=== PATIENT | male | born 1965 | race Caucasian/White ===

== ENCOUNTER 2016-07-10 09:55 | Inpatient (IN) | payer OTHER ==
[~2016-07-10] VITALS: Ht 177.8 cm; Wt 72.5 kg
[2016-07-10] VITALS (7 sets, daily range): BP systolic 97–136; BP diastolic 60–83; PULSE 76–98; RESP 16–18; TEMP 97–98.2; O2SAT 96–100
[~2016-07-10 09:55] MED LIST: DEPA500T3 PO; DILA2TAB2 PO; LURA40 PO; REME15TA PO; SERT-132 PO
[2016-07-10] MEDS ORDERED: SODIUM CHLOR 0.9% 1000 ML INJ 1,000 ML IV SCH (10:08)
[2016-07-10] MEDS ORDERED: HYDROmorphone HCL PF 1 MG/ML VIAL IVS ONE (10:15)
[2016-07-10] MEDS ORDERED: ONDANSETRON HCL 4 MG/2 ML VIAL IVP ONE (10:15)
[2016-07-10 10:40] LABS: AUTOMATED NEUTROPHIL # 4.2 TH/MM3 (1.8-7.7); BASOPHIL % 0.4 % (0.0-2.0); EOSINOPHIL # 0.1 TH/MM3 (0-0.4); EOSINOPHIL % 0.9 % (0.0-4.0); HEMATOCRIT 39.8 % (39.0-51.0); HEMO FLAGS DIFF FINAL; LYMPH % 19.9 % (9.0-44.0); LYMPHOCYTE # 1.2 TH/MM3 (1.0-4.8); MEAN CELL VOLUME 89.5 FL (80.0-100.0); MEAN CORPUSCULAR HEMOGLOBIN 30.2 PG (27.0-34.0); MEAN CORPUSCULAR HGB CONC 33.7 % (32.0-36.0); MONO % 8.2 % (0.0-8.0); NEUT % 70.6 % (16.0-70.0); PLATELET COUNT 169 TH/MM3 (150-450); RED BLOOD COUNT 4.44 MIL/MM3 (4.50-5.90); RED CELL DISTRIBUTION WIDTH 16.8 % (11.6-17.2)
--- NOTE | 2016-07-10 10:45 | PD ---
HPI Chief Complaint: Abdominal Pain Time Seen by Provider: 10:03 Travel History International Travel<30 days: No Contact w/Intl Traveler<30days: No Traveled to known affect area: No History of Present Illness HPI Patient is a 50-year-old male with a history of cholecystectomy as well as biliary stent placement recently released from the hospital. He presents today with abdominal pain states is not responsive to his Dilaudid pills at home which she has run out of. Patient also states that he was diagnosed with a mass when they placed in his biliary stent. Patient states he has not been able to keep any food down but declines bloody or bilious vomiting. No history of fevers no diarrhea. According to records patient had a cholecystectomy on June 06 2016, and was readmitted on July 01 for jaundice as well as right upper quadrant pain and had a pancreatic stent placed and possible pancreatic mass. He has not followed up as an outpatient and has not seen oncologist. PFSH Past Medical History Bipolar Disorder: Yes Anxiety: No Depression: No Cancer: No Cardiovascular Problems: No Diminished Hearing: No Endocrine: No Gastrointestinal Disorders: Yes (Abdominal pain X's 1 month) GERD: Yes Genitourinary: No Hepatitis: No Immune Disorder: No Musculoskeletal: No Neurologic: No Psychiatric: Yes (bipolar takes medication for this ) Reproductive: No Respiratory: No Past Surgical History Body Medical Devices: NONE Cholecystectomy: Yes (2015) Pacemaker: No Other Surgery: Yes (Nasal) Social History Alcohol Use: No Tobacco Use: Yes (1.5 PPD) Substance Use: No Allergies-Medications (Allergen,Severity, Reaction): Coded Allergies: No Known Allergies (Unverified , 07/10/16) Reported Meds & Prescriptions Reported Meds & Active Scripts Active Dilaudid (Hydromorphone HCl) 2 Mg Tab 2 Mg PO Q6HR PRN Reported Sertraline (Sertraline HCl) 50 Mg Tab 50 Mg PO DAILY Remeron (Mirtazapine) 15 Mg Tab 15 Mg PO HS Latuda (Lurasidone) 40 Mg Tab 40 Mg PO HS Depakote ER (Divalproex Sodium) 500 Mg Cally 500 Mg PO BID Review of Systems Except as stated in HPI: all other systems reviewed are Neg Physical Exam Narrative GENERAL: Well-developed well-nourished in no apparent distress SKIN: Warm and dry. HEAD: Atraumatic. Normocephalic. EYES: Pupils equal and round. No scleral icterus. No injection or drainage. ENT: No nasal bleeding or discharge. Mucous membranes pink and moist. NECK: Trachea midline. No JVD. CARDIOVASCULAR: Regular rate and rhythm. No murmur appreciated. RESPIRATORY: No accessory muscle use. Clear to auscultation. Breath sounds equal bilaterally. GASTROINTESTINAL: Abdomen soft, minimally tender in all 4 quadrants, nondistended. No rebound no percussion tenderness Hepatic and splenic margins not palpable. MUSCULOSKELETAL: No obvious deformities. No clubbing. No cyanosis. No edema. NEUROLOGICAL: Awake and alert. No obvious cranial nerve deficits. Motor grossly within normal limits. Normal speech. PSYCHIATRIC: Appropriate mood and affect; insight and judgment normal. Data Data Last Documented VS Vital Signs Date Time Temp Pulse Resp B/P Pulse Ox O2 Delivery O2 Flow Rate FiO2 07/10/16 12:34 17 07/10/16 12:20 98.0 76 128/83 99 Room Air Orders Complete Blood Count With Diff (07/10/16 10:08) Comprehensive Metabolic Panel (07/10/16 10:08) Lipase (07/10/16 10:08) Lactic Acid (07/10/16 10:08) Prothrombin Time / Inr (Pt) (07/10/16 10:08) Act Partial Throm Time (Ptt) (07/10/16 10:08) Urinalysis - C+S If Indicated (07/10/16 10:08) Ct Abd/Pel W Iv Contrast(Rout) (07/10/16 10:08) Iv Access Insert/Monitor (07/10/16 10:08) Ecg Monitoring (07/10/16 10:08) Oximetry (07/10/16 10:08) Ondansetron Inj (Zofran Inj) (07/10/16 10:15) Sodium Chlor 0.9% 1000 Ml Inj (Ns 1000 M (07/10/16 10:08) Sodium Chloride 0.9% Flush (Ns Flush) (07/10/16 10:15) Electrocardiogram (07/10/16 10:08) Hydromorphone Pf Inj (Dilaudid Pf Inj) (07/10/16 10:15) Hydromorphone Pf Inj (Dilaudid Pf Inj) (07/10/16 11:30) Iohexol 300 Inj (Omnipaque 300 Inj) (07/10/16 12:21) Admit Order (Ed Use Only) (07/10/16 ) Hydromorphone Pf Inj (Dilaudid Pf Inj) (07/10/16 13:15) Labs Laboratory Tests Test 07/10/16 10:20 White Blood Count 6.0 TH/MM3 Red Blood Count 4.44 MIL/MM3 Hemoglobin 13.4 GM/DL Hematocrit 39.8 % Mean Corpuscular Volume 89.5 FL Mean Corpuscular Hemoglobin 30.2 PG Mean Corpuscular Hemoglobin 33.7 % Concent Red Cell Distribution Width 16.8 % Platelet Count 169 TH/MM3 Mean Platelet Volume 9.2 FL Neutrophils (%) (Auto) 70.6 % Lymphocytes (%) (Auto) 19.9 % Monocytes (%) (Auto) 8.2 % Eosinophils (%) (Auto) 0.9 % Basophils (%) (Auto) 0.4 % Neutrophils # (Auto) 4.2 TH/MM3 Lymphocytes # (Auto) 1.2 TH/MM3 Monocytes # (Auto) 0.5 TH/MM3 Eosinophils # (Auto) 0.1 TH/MM3 Basophils # (Auto) 0.0 TH/MM3 CBC Comment DIFF FINAL Differential Comment Prothrombin Time 12.5 SEC Prothromb Time International 1.1 RATIO Ratio Activated Partial 27.3 SEC Thromboplast Time Sodium Level 140 MEQ/L Potassium Level 3.8 MEQ/L Chloride Level 101 MEQ/L Carbon Dioxide Level 28.9 MEQ/L Anion Gap 10 MEQ/L Blood Urea Nitrogen 10 MG/DL Creatinine 0.56 MG/DL Estimat Glomerular Filtration 155 ML/MIN Rate Random Glucose 125 MG/DL Lactic Acid Level 2.2 mmol/L Calcium Level 9.3 MG/DL Total Bilirubin 2.6 MG/DL Aspartate Amino Transf 20 U/L (AST/SGOT) Alanine Aminotransferase 81 U/L (ALT/SGPT) Alkaline Phosphatase 542 U/L Total Protein 7.0 GM/DL Albumin 2.7 GM/DL Lipase 120 U/L [facility] Medical Decision Making Medical Screen Exam Complete: Yes Emergency Medical Condition: Yes Interpretation(s) EKG shows sinus rhythm with a normal axis and normal R-wave progression. Intervals within normal limits. Biphasic T pattern in lead 3 and aVF probable normal variant. This is a borderline EKG. Differential Diagnosis Abdominal pain, malignant related pain, biliary colic, biliary stenting, pancreatic cancer, acute abdomen seems unlikely. Narrative Course Patient roomed in the emergency department, given his medical records highly suspect pancreatic cancer. CT examination was performed and shows no significant change from prior. He does have a small volume ascites as well as 2 lesions in his liver which possibly related to malignancy. He does also have a mass in the head of his pancreas. His labs show an elevation in alk phosphatase which is lower than his previous value. His bilirubin has been as high as 10 in the past but is within normal limits today. He was given Dilaudid to a total of 5 mg in the emergency department finally having some relief of his pain. I discussed with him given the amount of pain medicine he is taking a needs to consider being in the hospital for further workup as an inpatient for intractable abdominal pain and he is agreeable to this time. Diagnosis Primary Impression: Intractable abdominal pain Additional Impressions: Pancreatic mass S/P cholecystectomy S/P laparoscopic cholecystectomy Right upper quadrant abdominal pain Admitting Information Admitting Physician Requests: Observation Condition: Stable Luis Casillas MD Jul 10, 2016 10:45
[2016-07-10 10:57] LABS: APTT (PATIENT) 27.3 SEC (24.3-30.1); INTERNATIONAL NORMALIZED RATIO 1.1 RATIO; PROTHROMBIN TIME - PATIENT 12.5 SEC (9.8-11.6)
[2016-07-10 11:03] LABS: ALT (GPT) 81 U/L (12-78); ANION GAP 10 MEQ/L (5-15); AST (GOT) 20 U/L (15-37); BICARBONATE 28.9 MEQ/L (21.0-32.0); BLOOD UREA NITROGEN 10 MG/DL (7-18); CHLORIDE 101 MEQ/L (98-107); GLOMERULAR FILTRATION RATE 155 ML/MIN (>89); POTASSIUM 3.8 MEQ/L (3.5-5.1); SODIUM (NA) 140 MEQ/L (136-145)
[2016-07-10 11:05] LABS: ALKALINE PHOSPHATASE 542 U/L (45-117); TOTAL BILIRUBIN ADULT 2.6 MG/DL (0.2-1.0)
[2016-07-10] MEDS ORDERED: HYDROmorphone HCL PF 2 MG/ML VIAL IV PUSH ONE ×2 (11:30→13:15)
[2016-07-10] MEDS: SODIUM CHLORIDE 0.9% FLUSH 5 ML FLUSH IVF PRN ×2 (12:05→13:23)
[2016-07-10] MEDS ORDERED: IOHEXOL 300 MG/ML 50 ML BTL (for RAD DIAG) IV ONE (12:21)
--- NOTE | 2016-07-10 12:50 | RADRPT ---
EXAM DATE/TIME: 07/10/2016 11:49 [place] COMPARISON: MRCP W/O CONTRAST, July 01, 2016, 16:43. MRCP W/O CONTRAST, May 16, 2016, 7:40. CT ABDOMEN & PELVIS W CONTRAST, February 18, 2016, 16:45. CT ABDOMEN & PELVIS W CONTRAST, July 02, 2016, 17: 33. INDICATIONS : Mid abdomen pain diarrhea for one month mass seen around pancreas when patient was getting a stent. IV CONTRAST: 98 cc Omnipaque 300 (iohexol) IV ORAL CONTRAST: No oral contrast ingested. RADIATION DOSE: 9.96 CTDIvol (mGy) MEDICAL HISTORY : Pancreatic mass SURGICAL HISTORY : stent placement ENCOUNTER: Initial ACUITY: 1 month PAIN SCALE: 10/10 LOCATION: Abdomen TECHNIQUE: Volumetric scanning of the abdomen and pelvis was performed. Using automated exposure control and ad justment of the mA and/or kV according to patient size, radiation dose was kept as low as reasonably achievable to obtain optimal diagnostic quality images. FINDINGS: LOWER LUNGS: The visualized lower lungs are clear. LIVER: There is abnormal enhancement of the liver with decreased central enhancement likely related to sadaf l vein occlusion versus severe narrowing near the sadaf splenic confluence. Patient is postcholecyste ctomy. There is prominence of the central intrahepatic bile ducts with left pneumobilia. Stent is pre sent with proximal aspect at the confluence of the left and right intrahepatic ducts and distally ext ends to the second portion the duodenum. There are again 3 low-density liver lesions identified in th e right lobe measuring between 9 and 10 mm. SPLEEN: Spleen is normal in size but demonstrates somewhat wedge-shaped areas of decreased enhancement as wel l as a 2 more focal hypodense low-density lesions measuring up to 11 mm. PANCREAS: There is a low-density mass involving the body of the pancreas and extending posteriorly into the adj acent soft tissues completely encasing the celiac trunk and its main branches as well as the superior mesenteric artery. Abnormal soft tissue also extends in the gastrohepatic region. The mass is challe nging tach early measure given the shape but it measures approximately 5.2 x 4.4 cm not change since the study from 8 days ago. It causes narrowing of the SMA and celiac axis and causes occlusion of the splenic vein. It is not causing any pancreatic duct dilatation. Pancreatic head and uncinate process demonstrate no definite abnormality. KIDNEYS: Normal in size and shape. There is no mass, stone or hydronephrosis. ADRENAL GLANDS: Within normal limits. VASCULAR: There is no aortic aneurysm. There is mild atherosclerotic disease. The peripancreatic mass is obstru cting the splenic vein and causing severe narrowing versus obstruction of the portal vein. There is a lso severe narrowing along with encasement of the celiac trunk and superior mesenteric artery. There are collateral perigastric vessels. BOWEL/MESENTERY: Stomach demonstrates no acute finding. There is edema versus wall thickening involving the second por tion of the duodenum. Remaining small bowel demonstrates no acute finding. No definite acute colon ab normality is appreciated. There is questionable wall thickening of the ascending colon but it appears less prominent than on the prior study. It may be vascular in etiology. There is a small volume of f ree fluid within the abdomen and pelvis. ABDOMINAL WALL: Within normal limits. RETROPERITONEUM: There is no lymphadenopathy. BLADDER: No wall thickening or mass. REPRODUCTIVE: Within normal limits. INGUINAL: There is no lymphadenopathy or hernia. MUSCULOSKELETAL: No acute osseous abnormality is identified. CONCLUSION: 1. The findings on the current study a very similar to the prior study from 8 days ago with a abnorma l low-density mass involving the body of the pancreas and adjacent retroperitoneal structures measuri ng approximately 5.2 x 4.4 cm. The mass is causing attenuation/narrowing of the celiac trunk and supe rior mesenteric arteries and is crossing the occlusion of the splenic vein and severe narrowing versu s occlusion of the portal vein. 2. 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 There are also 2 low-density lesions that appear more masslike measuring up to 11 mm and may represent lesions or perfusion related abnormalities. These f indings are new since the prior study. 3. Abnormal enhancement of the liver likely related to narrowing/occlusion of the portal vein with 3 low-density lesions identified measuring up to 10 mm. These are incompletely characterized but could represent metastatic lesions. 4. There is a stable small volume of free fluid within the abdomen and pelvis. Savage Sarmiento MD on July 10, 2016 at 12:33 Board Certified Radiologist. This report was verified electronically.
--- NOTE | 2016-07-10 14:01 | HHI.HP ---
[facility] Service Family Medicine Primary Care Physician Geraldine Gerardo MD Admission Diagnosis Intractible Abdominal Pain Diagnoses: International Travel<30 Days: No Contact w/Intl Traveler<30days: No Known Affected Area: No History of Present Illness Patient is a 50-year-old man with a known pancreatic mass who presents with intractable abdominal pain. Pt is s/p cholecystectomy on 06/06/16, s/p ERCP with stent placement, with imaging concerning for pancreatic mass consistent with pancreatic adenocarcinoma with possible liver metastasis and elevated tumor markers with CA-19-9. Last admission, pt was unable to undergo percutaneous biopsy because it could not be safely done at this time secondary to inflammation. Last discharge, he was told to follow-up with oncology and get a biopsy as an outpatient, but was unable to. He was discharged on July 04 with 28 pills of Dilaudid 2 mg PO. Patient reports that he has had this abdominal pain since March. He reports that he ran out of Dilaudid pills 2 days ago, dealt with it for one day, and then presented today due to the ED for his intractable abdominal pain. His abdominal pain radiates to the middle of his back and goes all the way up his spine and he also experiences bilateral flank pain. His abdominal pain is associated with weakness, decreased appetite, diarrhea, which involving present since March. He reports that the Dilaudid does give him some relief. He reported that he presented with a pain of 10 out of 10, and after 3 shots of pain medication in the ED, his pain was still 5 out of 10. He reports losing 70 pounds since March. He endorses nausea, but denies any vomiting. He describes his diarrhea as runny, sometimes with solid pieces. He reports that he can drink liquids. Akin is PCP. He has an appointment on the . admitted for possible bx and pain management. (Demarcus Chan MD R1) Review of Systems Constitutional: COMPLAINS OF: Fatigue, Weight loss, DENIES: Fever, Chills Endocrine: DENIES: Polyuria Eyes: DENIES: Blurred vision, Diplopia, Double Vision Ears, nose, mouth, throat: DENIES: Throat pain, Ear Pain, Running Nose, Sinus Pain Respiratory: DENIES: Cough, Wheezing, Shortness of breath Cardiovascular: DENIES: Chest pain, Palpitations, Syncope Gastrointestinal: COMPLAINS OF: Abdominal pain, Diarrhea, Nausea, Anorexia, DENIES: Black stools, Bloody stools, Constipation, Vomiting Genitourinary: DENIES: Dysuria Musculoskeletal: COMPLAINS OF: Back pain Integumentary: DENIES: Rash Neurologic: DENIES: Headache (Demarcus Chan MD R1) Past Family Social History Past Medical History -Bipolar disorder diagnosed at 16 years old -Depression -Anxiety Past Surgical History s/p cholecystectomy on 06/06/16, s/p ERCP with stent placement last admission Nasal surgery I&D of left hand abscess Reported Medications Sertraline (Sertraline HCl) 50 Mg Tab 50 Mg PO DAILY Remeron (Mirtazapine) 15 Mg Tab 15 Mg PO HS Latuda (Lurasidone) 40 Mg Tab 40 Mg PO HS Depakote ER (Divalproex Sodium) 500 Mg Cally 500 Mg PO BID Tramadol ER 24 HR (Tramadol HCl) 300 Mg Caper 300 Mg PO DAILY (Demarcus Chan MD R1) Allergies: Coded Allergies: No Known Allergies (Unverified , 07/10/16) Family History DM: Mom diagnosed at 47 years of age HTN: Mom IA: Mom Cancer: sister of pancreatic cancer Social History Current smoker - 1.5 ppd for 20 years - wants to quit but has not tried Alcohol - denies Drugs - denies Lives with mom. Looking for work (Demarcus Chan MD R1) Physical Exam Vital Signs Vital Signs Date Time Temp Pulse Resp B/P Pulse Ox O2 Delivery O2 Flow Rate FiO2 07/10/16 12:34 17 07/10/16 12:20 98.0 76 18 128/83 99 Room Air 07/10/16 10:51 17 07/10/16 10:10 17 99 Room Air 07/10/16 10:10 17 07/10/16 10:09 97.8 98 17 131/83 07/10/16 09:56 98.2 95 16 120/69 100 Physical Exam GENERAL: This is a well-nourished, well-developed patient, in mild distress secondary to pain. SKIN: No rashes, ecchymoses or lesions. Cool and dry. HEAD: Atraumatic. Normocephalic. EYES: Pupils equal round and reactive. Extraocular motions intact. No scleral icterus. No injection or drainage. ENT: Nose without bleeding, purulent drainage. Throat without erythema, tonsillar hypertrophy or exudate. Uvula midline. Airway patent. NECK: Trachea midline. No JVD or lymphadenopathy. Supple, nontender, no meningeal signs. CARDIOVASCULAR: Regular rate and rhythm without murmurs, gallops, or rubs. RESPIRATORY: Clear to auscultation. Breath sounds equal bilaterally. No wheezes , rales, or rhonchi. GASTROINTESTINAL: Abdomen soft, non-tender, nondistended. No guarding. MUSCULOSKELETAL: Extremities without clubbing, cyanosis, or edema. No joint tenderness, effusion. + trace ankle edema noted. No calf tenderness. NEUROLOGICAL: Awake and alert. Cranial nerves II through XII grossly intact. Motor and sensory grossly within normal limits. Normal speech. Laboratory Laboratory Tests Test 07/10/16 10:20 White Blood Count 6.0 Red Blood Count 4.44 Hemoglobin 13.4 Hematocrit 39.8 Mean Corpuscular Volume 89.5 Mean Corpuscular Hemoglobin 30.2 Mean Corpuscular Hemoglobin 33.7 Concent Red Cell Distribution Width 16.8 Platelet Count 169 Mean Platelet Volume 9.2 Neutrophils (%) (Auto) 70.6 Lymphocytes (%) (Auto) 19.9 Monocytes (%) (Auto) 8.2 Eosinophils (%) (Auto) 0.9 Basophils (%) (Auto) 0.4 Neutrophils # (Auto) 4.2 Lymphocytes # (Auto) 1.2 Monocytes # (Auto) 0.5 Eosinophils # (Auto) 0.1 Basophils # (Auto) 0.0 CBC Comment DIFF FINAL Differential Comment Prothrombin Time 12.5 Prothromb Time International 1.1 Ratio Activated Partial 27.3 Thromboplast Time Sodium Level 140 Potassium Level 3.8 Chloride Level 101 Carbon Dioxide Level 28.9 Anion Gap 10 Blood Urea Nitrogen 10 Creatinine 0.56 Estimat Glomerular Filtration 155 Rate Random Glucose 125 Lactic Acid Level 2.2 Calcium Level 9.3 Total Bilirubin 2.6 Aspartate Amino Transf 20 (AST/SGOT) Alanine Aminotransferase 81 (ALT/SGPT) Alkaline Phosphatase 542 Total Protein 7.0 Albumin 2.7 Lipase 120 (Demarcus Chan MD R1) Result Diagram: 07/10/16 1020 07/10/16 1020 Imaging Last Impressions Abdomen/Pelvis CT 07/10/16 1008 Signed Impressions: Service Date/Time: June 11:49 - CONCLUSION: 1. The findings on the current study a very similar to the prior study from 8 days ago with a abnormal low-density mass involving the body of the pancreas and adjacent retroperitoneal structures measuring approximately 5.2 x 4.4 cm. 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 2. 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 There are also 2 low-density lesions that appear more masslike measuring up to 11 mm and may represent lesions or perfusion related abnormalities. These findings are new since the prior study. 3. Abnormal enhancement of the liver likely related to narrowing/occlusion of the portal vein with 3 low-density lesions identified measuring up to 10 mm. These are incompletely characterized but could represent metastatic lesions. 4. There is a stable small volume of free fluid within the abdomen and pelvis. Savage Sarmiento MD Course In the emergency depart, patient received Dilaudid 1 mg IVS 1, EKG, Zofran 4 mg IV push 1, CT abdomen and pelvis with IV contrast, UA, a PTT, PT/INR, lactic acid, lipase, CMP, CBC, Dilaudid 2 mg IV push 2. (Demarcus Chan MD R1) Assessment and Plan Assessment and Plan Patient is a 50-year-old man with a known pancreatic mass who presents with intractable abdominal pain. Pt is s/p cholecystectomy on 06/06/16, s/p ERCP with stent placement, with imaging concerning for pancreatic mass consistent with pancreatic adenocarcinoma with possible liver metastasis and elevated tumor markers with CA-19-9, who is being admitted for pain management and possible biopsy. Code Status Full code Discussed Condition With Patient seen and discussed with Dr. Gorge Workman and Dr. Bridgette Workman. (Demarcus Chan MD R1) Attending Attestation Patient seen and examined. Case reviewed and discussed with the resident team. Agree with plan of care as discussed with me and documented in the resident note. (Bridgette Workman MD) Problem List: (1) Intractable abdominal pain Status: Acute Plan: Patient is a 50-year-old man with a known pancreatic mass who presents with intractable abdominal pain. Pt is s/p cholecystectomy on 06/06/16, s/p ERCP with stent placement, with imaging concerning for pancreatic mass consistent with pancreatic adenocarcinoma with possible liver metastasis and elevated tumor markers with CA-19-9, who is being admitted for pain management and possible biopsy. Monitor vital signs Monitor pulse ox Administer oxygen by nasal cannula as needed Monitor intake and output monitoring analyst/telemetry APPLIANCE TECHNICIAN pump: * Bolus dose of 0.2 mg * Bolus lockout time of 10 minutes * 1 hour limit of 1.6 mg * Basal rate of 0.4 mg per hour * Narcan 0.4 mg IV stat if respiratory rate less than 10 breaths per minute Carla-Colace one tab by mouth twice a day for opiate-induced constipation Normal saline IV 100 mL per hour Tylenol 650 mg by mouth every 4 hours when necessary for fever, pain, irritability Toradol 30 mg IV push every 6 hours Zofran 4 mg IV push every 6 hours when necessary for nausea or vomiting (2) Pancreatic mass Status: Acute Plan: See assessment and plan above. Medical oncology consult. Patient already known to the service. BMP, CMP (3) Bipolar disorder Status: Chronic Plan: Patient with bipolar disorder diagnosed at 16 years of age with comorbid conditions such as anxiety and depression. Continue home medications as below: Depakote ER 500 mg by mouth twice a day Latuda 40 mg by mouth daily at bedtime Mirtazapine/Remeron 15 mg by mouth daily at bedtime Sertraline/Zoloft 50 mg by mouth daily (4) FEN/DVT PPX/GI PPX Status: Acute Plan: Fluids: Maintenance fluids with normal saline IV at 100 [place]'s per hour Electrolytes: Monitor and replete as needed Nutrition: Regular basic diet as tolerated GI prophylaxis: None currently indicated at this time DVT prophylaxis: Given likely history of cancer and no renal injury, Lovenox 40 mg subcutaneous every 24 hours (Demarcus Chan MD R1) Physician Certification 2 Midnight Certification Type: Admission for Inpatient Services Order for Inpatient Services The services are ordered in accordance with Medicare regulations or non- Medicare payer requirements, as applicable. In the case of services not specified as inpatient-only, they are appropriately provided as inpatient services in accordance with the 2-midnight benchmark. Estimated LOS (days): 2 2 days is the estimated time the patient will need to remain in the hospital, assuming treatment plan goals are met and no additional complications. Post-Hospital Plan: Not yet determined (Demarcus Chan MD R1) Demarcus Chan MD R1 Jul 10, 2016 14:01 Bridgette Workman MD Jul 10, 2016 19:50
[2016-07-10] MEDS ORDERED: ONDANSETRON HCL 4 MG/2 ML VIAL IVP PRN (14:15)
[2016-07-10] MEDS ORDERED: SODIUM CHLORIDE 0.9% FLUSH 5 ML FLUSH FLUSH PRN (14:15)
[2016-07-10] MEDS ORDERED: NALOXONE HCL 0.4 MG/ML AMP IV PRN ×2 (14:15→20:15)
[2016-07-10] MEDS ORDERED: ACETAMINOPHEN 325 MG TAB PO PRN (14:15)
--- NOTE | 2016-07-10 14:23 | HHI.FPPN ---
Subjective Remarks pt. seen, examined and discussed with the medicine team This is a 50 yo male with recent cholecystectomy who presented to ED last week with jaundice and upper abdominal pain. He was admitted, evaluated and found to have a mass in thehead of the pancreas. Stent was placed and his jaundice is resolving, but his pain is severe 10:10 with absolutely no appetite. He has gone 24 hr without dilaudid and is in distress. Thus far in ED he has had three doses of IV pain medication and his pain is now 5:10. Mom is with him and is supportive. He was referred to oncology but has not yet been seen. He needs a biopsy of the mass to confirm diagnosis. See H&P for this admission for additional historical details, including past, family and social History. Review of systems + for nausea, no vomiting, anorexia, abdominal pain across upper abdomen and pale, loose stools. Otherwise all systems negative. Objective Vitals Vital Signs Date Time Temp Pulse Resp B/P Pulse Ox O2 Delivery O2 Flow Rate FiO2 07/10/16 13:53 17 07/10/16 12:34 17 07/10/16 12:20 98.0 76 18 128/83 99 Room Air 07/10/16 10:51 17 07/10/16 10:10 17 99 Room Air 07/10/16 10:10 17 07/10/16 10:09 97.8 98 17 131/83 07/10/16 09:56 98.2 95 16 120/69 100 Result Diagram: 07/10/16 1020 07/10/16 1020 Other Results Laboratory Tests Test 07/10/16 10:20 White Blood Count 6.0 TH/MM3 Red Blood Count 4.44 MIL/MM3 Hemoglobin 13.4 GM/DL Hematocrit 39.8 % Mean Corpuscular Volume 89.5 FL Mean Corpuscular Hemoglobin 30.2 PG Mean Corpuscular Hemoglobin 33.7 % Concent Red Cell Distribution Width 16.8 % Platelet Count 169 TH/MM3 Mean Platelet Volume 9.2 FL Neutrophils (%) (Auto) 70.6 % Lymphocytes (%) (Auto) 19.9 % Monocytes (%) (Auto) 8.2 % Eosinophils (%) (Auto) 0.9 % Basophils (%) (Auto) 0.4 % Neutrophils # (Auto) 4.2 TH/MM3 Lymphocytes # (Auto) 1.2 TH/MM3 Monocytes # (Auto) 0.5 TH/MM3 Eosinophils # (Auto) 0.1 TH/MM3 Basophils # (Auto) 0.0 TH/MM3 CBC Comment DIFF FINAL Differential Comment Prothrombin Time 12.5 SEC Prothromb Time International 1.1 RATIO Ratio Activated Partial 27.3 SEC Thromboplast Time Sodium Level 140 MEQ/L Potassium Level 3.8 MEQ/L Chloride Level 101 MEQ/L Carbon Dioxide Level 28.9 MEQ/L Anion Gap 10 MEQ/L Blood Urea Nitrogen 10 MG/DL Creatinine 0.56 MG/DL Estimat Glomerular Filtration 155 ML/MIN Rate Random Glucose 125 MG/DL Lactic Acid Level 2.2 mmol/L Calcium Level 9.3 MG/DL Total Bilirubin 2.6 MG/DL Aspartate Amino Transf 20 U/L (AST/SGOT) Alanine Aminotransferase 81 U/L (ALT/SGPT) Alkaline Phosphatase 542 U/L Total Protein 7.0 GM/DL Albumin 2.7 GM/DL Lipase 120 U/L Imaging Last Impressions Abdomen/Pelvis CT 07/10/16 1008 Signed Impressions: Service Date/Time: June 11:49 - CONCLUSION: 1. The findings on the current study a very similar to the prior study from 8 days ago with a abnormal low-density mass involving the body of the pancreas and adjacent retroperitoneal structures measuring approximately 5.2 x 4.4 cm. 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 2. 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 There are also 2 low-density lesions that appear more masslike measuring up to 11 mm and may represent lesions or perfusion related abnormalities. These findings are new since the prior study. 3. Abnormal enhancement of the liver likely related to narrowing/occlusion of the portal vein with 3 low-density lesions identified measuring up to 10 mm. These are incompletely characterized but could represent metastatic lesions. 4. There is a stable small volume of free fluid within the abdomen and pelvis. Savage Sarmiento MD Objective Remarks O. CONSTITUTIONAL/GEN: normally nourished, in distress with severe abdominal pain.. EYES: conjunctiva normal, PERRLA, EOMI. No scleral icterus. ENT: Mouth and pharynx normal. MM moist. NECK: thyroid midline, carotids symmetrical. LUNGS: clear A-P, respiratory effort is normal. CARDIOVASCULAR: RR without murmur or gallop. Perhaps trace ankle edema. GI/ABD: soft without masses, without organomegaly. BS +. He has had significant pain meds. : no CVA tenderness NEURO: No focal deficits. SKIN: color pale, no rashes noted. HEME/LYMPH: no bruising, petechia or significant adenopathy MUSC: back is normal in appearance. Extremities are normal in appearance. PSYCH/MENTAL STATUS: Alert and oriented x 3. A/P Assessment and Plan Pancreatic mass suspicious for maligancy. Attending Attestation Patient seen and examined. Case reviewed and discussed with the resident team. Agree with plan of care as discussed with me and documented in the resident note. Bridgette Workman MD Jul 10, 2016 14:23
[2016-07-10] MEDS: SODIUM CHLOR 0.9% 1000 ML INJ 1,000 ML IV SCH (14:26)
[2016-07-10] MEDS ORDERED: MORPHINE SULFATE 4 MG/ML INJ IV PRN (14:30)
[2016-07-10] MEDS ORDERED: HYDROmorphone HCL PF 1 MG/ML VIAL IV PRN (14:30)
[2016-07-10] MEDS ORDERED: oxyCODONE/ACETAMINOPHEN 5 MG/325 MG TAB PO PRN (14:30)
[2016-07-10] MEDS ORDERED: ACETAMINOPHEN/HYDROcodone 325 MG/10 MG TAB PO PRN (14:30)
[2016-07-10] MEDS ORDERED: ACETAMINOPHEN/HYDROcodone 325 MG/5 MG TAB PO PRN (14:30)
[2016-07-10] MEDS ORDERED: ENOXAPARIN SODIUM 40 MG/0.4 ML SYRINGE SQ SCH (15:00)
[2016-07-10] MEDS ORDERED: KETOROLAC TROMETHAMINE 30 MG/ML (IVP) VIAL IV PUSH SCH (18:30)
--- NOTE | 2016-07-10 19:57 | MB ---
cc: FOUZIA GROSSMAN MD DATE OF CONSULTATION: 07/10/2016. REASON FOR CONSULTATION: Patient with a pancreatic body mass associated with obstructive jaundice coming to the hospital with intractable abdominal pain. The oncology service has been consulted for further workup and management of what is suspected to be a pancreatic malignancy. CONSULT REQUESTED BY: Dr. Bridgette Workman. CHIEF COMPLAINT: Mr. Alejandro reports having severe abdominal pain. He reports running out of his oral pain medications which prompted the emergency department visit earlier today. HISTORY OF PRESENT ILLNESS: Ms. Alejandro is a 50-year-old male who reports being in his usual state of health up until February of 2016. He began at that time to notice diffuse upper abdominal pain, this was associated with anorexia, weight loss and fatigue. Overall the patient has lost 70 pounds since February of 2016. He initially presented to the [facility] Emergency Department in February at the onset of these symptoms and underwent a CT scan of the abdomen and pelvis on 02/18/2016; this revealed no obvious abnormalities per the official report. His symptoms continued and he was subsequently referred to gastroenterology and was seen by Dr. Herr. The patient was recommended a workup which included MRCP, which was performed on 05/16/2016. The MRCP revealed an apparently normal-appearing pancreas. There was no evidence of intra- or extrahepatic biliary dilatation. What prompted workup for cholecystitis / choledocholithiasis was the nature of the pain, which was cramping. The patient underwent various imaging studies including a HIDA scan. The HIDA scan did reveal non-filling of the gallbladder, which was consistent with cholecystitis / ductal obstruction. The patient subsequently was evaluated by general surgery and underwent a cholecystectomy performed by Dr. Bennett. He was noted to have chronic cholecystitis and cholelithiasis. Unfortunately, symptoms did not improve and on 07/02/2016, he presented to the hospital again with abdominal pain and this time underwent a CT scan of the abdomen and pelvis which revealed a large ill-defined low attenuation mass involving the body of the pancreas which encased the celiac axis and the superior mesenteric artery. This was thought to be most consistent with pancreatic carcinoma. A biliary drainage catheter was in place. Three low attenuation masses in the liver were present which were concerning for metastatic disease. The patient was initially seen by Dr. Mckee; however, due to Dr. Mckee's impending fdc, the patient has had his care transferred to my service. PAST MEDICAL HISTORY: 1. Pancreatic mass. 2. Ongoing tobaccoism. 3. Bipolar disorder, which is well-controlled. PAST SURGICAL HISTORY: 1. Status post cholecystectomy. 2. Colonoscopy. 3. Hand surgery. FAMILY HISTORY: Mom is living, she has coronary artery disease. Father's status is not known. The patient's sister recently of metastatic "intestinal or stomach cancer". The patient's grandmother also had cancer but of the throat. SOCIAL HISTORY: The patient is , he is originally from [place], [place]. He has a 12-year-old son. The patient currently lives at home with his mother. 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 He reports having smoked since he was a teenager and has smoked up to two packs a day. He denies alcohol abuse. ALLERGIES: NO KNOWN DRUG ALLERGIES. CURRENT INPATIENT MEDICATIONS: 1. Normal saline 100 cc/hour. 2. Tylenol 650 milligrams p.o. q. 4 hours as needed for temperature greater than 100.4 degrees Fahrenheit. 3. Depakote 500 milligrams p.o. twice a day. 4. Carla-Colace one tablet p.o. twice a day. 5. Lovenox 40 milligrams subcutaneous q. 24 hours. 6. Ketorolac 30 milligrams IV q. 6 hours as needed for pain. 7. Remeron 15 milligrams p.o. at bedtime. 8. Zofran 4 milligrams IV q. 4 hours as needed for nausea and vomiting. REVIEW OF SYSTEMS: A thirteen point review of systems was obtained and the following are the pertinent positives: CONSTITUTIONAL: The patient reports having lost about 70 pounds since March of 2016. He reports decreased appetite, generalized fatigue and weakness. He denies fevers or chills. HEAD, EYES, EARS, NOSE, THROAT: Denies headaches, blurry vision, difficulty swallowing or soreness in the throat. RESPIRATORY: Denies difficulty breathing, cough, hemoptysis, pleuritic chest pain. CARDIOVASCULAR: Denies angina-like chest pain, PND, orthopnea or lower extremity edema. GI: Denies reports nausea, denies vomiting. Reports diarrhea, Denies hematochezia or melena. He reports epigastric abdominal pain. : No complaints. MUSCULOSKELETAL: No complaints. STYLE ADVISOR: No focal sensory or motor deficits. PHYSICAL EXAMINATION: VITAL SIGNS: The vital signs reveal a temperature 97.7 degrees Fahrenheit, heart rate 78 beats per minute, respiratory rate 16, blood pressure 97/60, 02 saturations 98% on room air. GENERAL PHYSICAL APPEARANCE: Mr. Alejandro is a middle-aged male. He is thin built and appears to be chronically ill. HEAD, EYES, EARS, NOSE, THROAT: Head is atraumatic and normocephalic. Conjunctivae are pale. The sclerae are icteric. Extraocular muscles intact. Pupils equal, round and reactive to light and accommodation. ORAL EXAM: No pharyngeal erythema. NECK EXAM: No palpable cervical or supraclavicular lymphadenopathy. RESPIRATORY EXAM: Good air movement bilaterally. No added breath sounds. CARDIOVASCULAR EXAM: Regular rate and rhythm. S1, S2. No obvious murmurs, rubs or gallops. ABDOMINAL EXAM: Thin belly, soft, nontender, nondistended, no palpable organ enlargement. Some epigastric tenderness is elicited. LOWER EXTREMITIES: No pretibial edema. No calf tenderness. STYLE ADVISOR: No focal sensory or motor deficits. MUSCULOSKELETAL: Generally decreased muscle mass, tone and strength. LABORATORY FINDINGS: Blood work dated 07/10/2016: Sodium 140, potassium 3.8, chloride 101, bicarb 29, BUN 10, creatinine 0.56, EGFR 155, random glucose 125, lactic acid 2.2, calcium of 9.3, total bilirubin 2.6, AST 20, ALT 81, alkaline phosphatase 552, albumin 2.7, lipase 120. Tumor marker HCG is 101. CA 19-9 is 1340. IMAGING STUDIES: CT scan of the abdomen and pelvis dated 07/10/2016: 1. Findings on the current study are very similar to the prior study from eight days ago with an abnormal low density mass involving the body of the pancreas and adjacent retroperitoneal structures measuring 5.2 x 4.4 cm. The mass is causing attenuation / narrowing of the celiac trunk and the superior mesenteric arteries. There is a new wedge-shaped area of hypo-enhancement within the spleen present that presumably represents an infarct. 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 Two low-density lesions that appear more mass-like measuring up to 11 mm are noted in the spleen. These are new findings. Abnormal enhancement of the liver likely related to narrowing / occlusion of the portal vein with three low intensity lesions measuring up to 10 mm. These are incompletely characterized and could represent metastatic lesions. ASSESSMENT: Mr. Alejandro is a pleasant 50-year-old male who has had an approximate five month history of persistent upper abdominal pain, postprandial nausea and unintended weight loss of approximately 70 pounds. Imaging studies from earlier in June indicate findings consistent with a pancreatic body malignancy associated with celiac access encasement and compression. His CA 19-9 levels are elevated. He has at least three hypodense lesions involving the liver concerning for metastatic disease. Based on his symptoms, imaging studies and the general constellation of findings, this man has pancreas carcinoma until proven otherwise. The oncology service has been consulted for further workup and management. His major complaint is that of pain and nausea. RECOMMENDATIONS: 1. Pancreatic adenocarcinoma, likely associated with liver metastases: At this point I would recommend attempting a biopsy of one of the liver lesions. The most accessible one may be involving the right lobe of the liver in the inferior portion. Hopefully this will yield tissue which will help us establish a diagnosis. This patient may be a candidate for palliative systemic therapy. I am however quite concerned about the rapid rate of his weight loss and his rapid decline as far as far as his performance status is concerned. I did talk to the patient about the likely diagnosis of metastatic pancreas carcinoma and I also spoke to him about the palliative nature of treatment. I explained to him that his prognosis based on his clinical presentation is quite poor. He wishes to pursue a workup which is appropriate and will consider palliative systemic therapy. I will therefore request a CT-guided biopsy of one of the liver lesions tomorrow. His Lovenox will be put on hold. For management of his pain control, I will discontinue Ketorolac and will initiate him on a combination of long and short-acting opioids. I will arrange followup with me at my oncology clinic in [place] or [place] for outpatient followup. MD CECE Rivera/JAYANT /7:03 PM /7:31 PM
[2016-07-10] MEDS: HYDROmorphone HCL PCA 6 MG/30 ML IV SCH (20:33)
[2016-07-10] MEDS: DOCUSATE SODIUM 50 MG/SENNA 8.6 MG TAB PO SCH (20:59)
[2016-07-10] MEDS: DIVALPROEX SODIUM E.R. 500 MG TAB PO SCH (20:59)
[2016-07-10] MEDS: LURASIDONE 40 MG TAB PO SCH (20:59)
[2016-07-10] MEDS: MIRTAZAPINE 15 MG TAB PO SCH (20:59)
[2016-07-10] MEDS: SODIUM CHLORIDE 0.9% FLUSH 5 ML FLUSH FLUSH SCH (21:00)
[2016-07-10] MEDS: MORPHINE SULFATE 30 MG CONTROLLED RELEASE TAB PO SCH (21:00)
[2016-07-10] MEDS: PCA - TOTAL MG DILAUDID DELIVERED PER SHIFT SCH (23:03)
[2016-07-11] VITALS (13 sets, daily range): BP systolic 90–139; BP diastolic 53–75; PULSE 78–96; RESP 16–18; TEMP 97–97.9; O2SAT 92–99
[2016-07-11] MEDS: SODIUM CHLOR 0.9% 1000 ML INJ 1,000 ML IV SCH ×3 (00:12→21:58)
[2016-07-11] MEDS: HYDROmorphone HCL PCA 6 MG/30 ML IV SCH ×4 (03:28→22:56)
[2016-07-11] MEDS: PCA - TOTAL MG DILAUDID DELIVERED PER SHIFT SCH ×3 (06:10→22:00)
[2016-07-11 07:11] LABS: ALT (GPT) 66 U/L (12-78); ANION GAP 8 MEQ/L (5-15); AST (GOT) 17 U/L (15-37); BICARBONATE 29.1 MEQ/L (21.0-32.0); BLOOD UREA NITROGEN 6 MG/DL (7-18); CHLORIDE 105 MEQ/L (98-107); GLOMERULAR FILTRATION RATE 155 ML/MIN (>89); POTASSIUM 3.5 MEQ/L (3.5-5.1); SODIUM (NA) 142 MEQ/L (136-145)
[2016-07-11 07:12] LABS: ALKALINE PHOSPHATASE 447 U/L (45-117); TOTAL BILIRUBIN ADULT 1.9 MG/DL (0.2-1.0)
[2016-07-11] MEDS: SODIUM CHLORIDE 0.9% FLUSH 5 ML FLUSH FLUSH SCH ×2 (09:00→21:00)
[2016-07-11] MEDS: DIVALPROEX SODIUM E.R. 500 MG TAB PO SCH ×2 (09:03→21:57)
[2016-07-11] MEDS: DOCUSATE SODIUM 50 MG/SENNA 8.6 MG TAB PO SCH ×2 (09:03→21:00)
[2016-07-11] MEDS: SERTRALINE HCL 50 MG TAB PO SCH (09:03)
[2016-07-11] MEDS: MORPHINE SULFATE 30 MG CONTROLLED RELEASE TAB PO SCH ×2 (09:03→21:56)
[2016-07-11] MEDS ORDERED: LIDOCAINE 1%/EPINEPHrine 1:100,000 SOLN 20 ML VIAL ONE (09:44)
[2016-07-11] MEDS ORDERED: fentaNYL CITRATE 250 MCG/5 ML AMP ONE (09:46)
[2016-07-11] MEDS ORDERED: MIDAZOLAM HCL 5 MG/5 ML VIAL ONE (09:46)
[2016-07-11] MEDS ORDERED: NALOXONE HCL 0.4 MG/ML AMP IV PRN (10:30)
[2016-07-11] MEDS ORDERED: HYDROmorphone HCL 2 MG TAB PO PRN (11:00)
--- NOTE | 2016-07-11 11:08 | RADRPT ---
EXAM DATE/TIME: 07/11/2016 10:10 [facility] COMPARISON: No previous studies available for comparison. INDICATIONS : Possible liver metastasis SEDATION TIME: 30 minutes BIOPSY SITE: MEDICATION(S): 1.) 1 mg midazolam (Versed) IV 2.) 100 mcg fentanyl (Sublimaze) IV DEVICE(S): 1.) 18 gauge Temno core biopsy needle MEDICAL HISTORY : Possible pancreatic mass SURGICAL HISTORY : Cholecystectomy ENCOUNTER: Initial ACUITY: 1 day PAIN SCORE: 10/10 LOCATION: Right liver A total of three core specimen(s) were obtained and sent to the laboratory for pathologic evaluation. PROCEDURE: 1. CT guided liver biopsy. Prior to the procedure informed consent was obtained. Any appropriate prior imaging studies were rev iewed. The site was prepped in a sterile fashion. Full sterile technique was used, including cap, mask, toñito rile gloves and gown and a large sterile sheet. Hand hygiene and 2% chlorhexidine and/or betadine/al cohol prep was utilized per protocol for cutaneous antisepsis. The skin and subcutaneous tissues wer e infiltrated with local anesthetic solution. With CT guidance the previously identified target was localized. Biopsy was performed using the presc ribed needle as above. Adequate hemostasis was obtained with compression at the puncture site. Follow-up CT scan reveals no hemorrhage. The patient tolerated the procedure well and there were no complications. The patient was returned to the Radiology Outpatient Unit in stable condition. CONCLUSION: Uncomplicated CT guided biopsy. Gene Field MD on July 11, 2016 at 11:06 Board Certified Radiologist. This report was verified electronically.
--- NOTE | 2016-07-11 12:12 | HHI.FPPN ---
Subjective Remarks Interviewed patient accompanied by his mother this morning in the radiology out patient care unit after his CT-guided biopsy of his liver. No acute events overnight. Except for some mild hypotension to 90/53 and low pulse ox of 92% on room air, patient was afebrile and vital signs stable. Patient reports that his pain is controlled with the new [employer] settings that we changed this morning. ( Demarcus Chan MD R1) Objective Vitals Vital Signs Date Time Temp Pulse Resp B/P Pulse Ox O2 Delivery O2 Flow Rate FiO2 07/11/16 12:00 83 18 105/59 93 07/11/16 11:00 89 18 103/67 92 07/11/16 10:45 97.9 85 16 113/61 97 07/11/16 08:00 97.0 80 16 90/53 97 07/11/16 06:10 18 07/11/16 04:00 97.5 82 17 135/64 98 07/11/16 03:58 19 07/11/16 03:28 18 07/11/16 00:00 97.6 80 18 139/65 98 07/10/16 22:00 18 07/10/16 20:33 18 07/10/16 20:00 97.0 79 18 136/64 98 07/10/16 17:36 16 07/10/16 16:10 97.7 78 16 97/60 98 07/10/16 14:30 96 21 07/10/16 14:30 79 18 101/66 99 Room Air 07/10/16 13:53 17 07/10/16 12:34 17 07/10/16 12:20 98.0 76 18 128/83 99 Room Air I/O 07/10/16 07/10/16 07/10/16 07/11/16 07/11/16 07/11/16 07:00 15:00 23:00 07:00 15:00 23:00 Intake Total 240 ml 0 ml Balance 240 ml 0 ml Intake Oral 240 ml 0 ml # Voids 1 1 # Bowel Movements 0 0 (Demarcus Chan MD R1) Result Diagram: 07/10/16 1020 07/11/16 0610 Imaging Last Impressions Liver Biopsy CT 07/11/16 0000 Signed Impressions: Service Date/Time: Monday, July 11, 2016 10:10 - CONCLUSION: Uncomplicated CT guided biopsy. Gene Field MD Abdomen/Pelvis CT 07/10/16 1008 Signed Impressions: Service Date/Time: June 11:49 - CONCLUSION: 1. The findings on the current study a very similar to the prior study from 8 days ago with a abnormal low-density mass involving the body of the pancreas and adjacent retroperitoneal structures measuring approximately 5.2 x 4.4 cm. 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 2. 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 There are also 2 low-density lesions that appear more masslike measuring up to 11 mm and may represent lesions or perfusion related abnormalities. These findings are new since the prior study. 3. Abnormal enhancement of the liver likely related to narrowing/occlusion of the portal vein with 3 low-density lesions identified measuring up to 10 mm. These are incompletely characterized but could represent metastatic lesions. 4. There is a stable small volume of free fluid within the abdomen and pelvis. Savage Sarmiento MD Objective Remarks O. CONSTITUTIONAL/GEN: normally nourished, in distress with severe abdominal pain.. EYES: conjunctiva normal, PERRLA, EOMI. No scleral icterus. ENT: Mouth and pharynx normal. MM moist. NECK: thyroid midline, carotids symmetrical. LUNGS: clear A-P, respiratory effort is normal. CARDIOVASCULAR: RR without murmur or gallop. Perhaps trace ankle edema. GI/ABD: soft without masses, without organomegaly. BS +. He has had significant pain meds. : no CVA tenderness NEURO: No focal deficits. SKIN: color pale, no rashes noted. HEME/LYMPH: no bruising, petechia or significant adenopathy MUSC: back is normal in appearance. Extremities are normal in appearance. PSYCH/MENTAL STATUS: Alert and oriented x 3. (Demarcus Chan MD R1) A/P Assessment and Plan Patient is a 50-year-old man with a known pancreatic mass who presents with intractable abdominal pain. Pt is s/p cholecystectomy on 06/06/16, s/p ERCP with stent placement, with imaging concerning for pancreatic mass consistent with pancreatic adenocarcinoma with possible liver metastasis and elevated tumor markers with CA-19-9, who is being admitted for pain management and CT- guided biopsy done this morning. Expect pathology report in 3 days, which will guide palliative therapy. (Demarcus Chan MD R1) Attending Attestation Patient seen and examined. Case reviewed and discussed with the resident team. Agree with plan of care as discussed with me and documented in the resident note. (Bridgette Workman MD) Problem List: (1) Intractable abdominal pain Status: Acute Plan: Patient is a 50-year-old man with a known pancreatic mass who presents with intractable abdominal pain. Pt is s/p cholecystectomy on 06/06/16, s/p ERCP with stent placement, with imaging concerning for pancreatic mass consistent with pancreatic adenocarcinoma with possible liver metastasis and elevated tumor markers with CA-19-9, who is being admitted for pain management and possible biopsy. Monitor vital signs Monitor pulse ox Administer oxygen by nasal cannula as needed Monitor intake and output inventory checker/telemetry [employer] pump: * Bolus dose of 0.4 mg * Bolus lockout time of 10 minutes * 1 hour limit of 2.0 mg * Basal rate of 0.6 mg per hour * Narcan 0.4 mg IV stat if respiratory rate less than 10 breaths per minute Carla-Colace one tab by mouth twice a day for opiate-induced constipation Normal saline IV 100 mL per hour Tylenol 650 mg by mouth every 4 hours when necessary for fever, pain, irritability Toradol 30 mg IV push every 6 hours Zofran 4 mg IV push every 6 hours when necessary for nausea or vomiting (2) Pancreatic mass Status: Acute Plan: See assessment and plan above. Medical oncology consult. Rectal conditions appreciated below: CT-guided biopsy of liver lesion done today. Expect pathology report in 3 days. Palliative Therapy pending tissue diagnosis BMP, CMP (3) Bipolar disorder Status: Chronic Plan: Patient with bipolar disorder diagnosed at 16 years of age with comorbid conditions such as anxiety and depression. Continue home medications as below: Depakote ER 500 mg by mouth twice a day Latuda 40 mg by mouth daily at bedtime Mirtazapine/Remeron 15 mg by mouth daily at bedtime Sertraline/Zoloft 50 mg by mouth daily (4) FEN/DVT PPX/GI PPX Status: Acute Plan: Fluids: Maintenance fluids with normal saline IV at 100 [place]'s per hour Electrolytes: Monitor and replete as needed Nutrition: Regular basic diet as tolerated GI prophylaxis: None currently indicated at this time DVT prophylaxis: Given likely history of cancer and no renal injury, Lovenox 40 mg subcutaneous every 24 hours (Demarcus Chan MD R1) Demarcus Chan MD R1 Jul 11, 2016 12:12 Bridgette Workman MD Jul 11, 2016 14:29
--- NOTE | 2016-07-11 13:47 | EKG ---
Date Performed: 07/10/2016 Time Performed: 10:30:21 PTAGE: 50 years EKG: Sinus rhythm NONSPECIFIC T-WAVE ABNORMALITY BORDERLINE ECG Since PREVIOUS TRACING , no significant change noted PREVIOUS TRACIN02/26/2016 01.41 DOCTOR: Christiano Restrepo Interpretating Date/Time 07/11/2016 13:36:45
[2016-07-11] MEDS: LURASIDONE 40 MG TAB PO SCH (21:57)
[2016-07-11] MEDS: MIRTAZAPINE 15 MG TAB PO SCH (21:57)
[2016-07-12] VITALS (8 sets, daily range): BP systolic 102–116; BP diastolic 60–70; PULSE 78–105; RESP 16–18; TEMP 97.1–99.1; O2SAT 97–98
[2016-07-12] MEDS: PCA - TOTAL MG DILAUDID DELIVERED PER SHIFT SCH ×3 (06:00→21:27)
[2016-07-12] MEDS: HYDROmorphone HCL PCA 6 MG/30 ML IV SCH ×3 (06:11→20:11)
[2016-07-12] MEDS: SODIUM CHLOR 0.9% 1000 ML INJ 1,000 ML IV SCH ×2 (06:12→15:35)
--- NOTE | 2016-07-12 07:29 | PD.ONC.PN ---
Subjective Subjective Remarks Afebrile overnight. Pt states he has had some diarrhea but it is improved. He reports pain diffusely across his abdomen, controlled with Dilaudid TUB WASHER pump. His appetite is good. He denies SOB. Objective Data Date Time Temp Pulse Resp B/P Pulse Ox O2 Delivery O2 Flow Rate FiO2 07/12/16 06:11 16 07/12/16 06:00 16 07/12/16 04:00 97.2 105 17 110/66 98 07/12/16 00:00 97.1 78 18 102/66 98 07/11/16 22:56 16 07/11/16 22:16 93 07/11/16 22:00 16 07/11/16 20:00 97.8 96 18 131/75 99 07/11/16 18:31 18 07/11/16 16:00 97.2 78 16 97/57 96 07/11/16 14:00 18 07/11/16 13:00 92 16 106/63 94 07/11/16 12:30 84 18 102/59 94 07/11/16 12:00 83 18 105/59 93 07/11/16 11:30 86 16 102/56 92 07/11/16 11:30 18 07/11/16 11:00 89 18 103/67 92 07/11/16 10:45 97.9 85 16 113/61 97 07/11/16 08:00 97.0 80 16 90/53 97 07/12/16 07/12/16 07/12/16 07:00 15:00 23:00 Intake Total 240 ml Balance 240 ml Result Diagram: 07/10/16 1020 07/11/16 0610 Imaging Studies Last Impressions Liver Biopsy CT 07/11/16 0000 Signed Impressions: Service Date/Time: Monday, July 11, 2016 10:10 - CONCLUSION: Uncomplicated CT guided biopsy. Gene Field MD Abdomen/Pelvis CT 07/10/16 1008 Signed Impressions: Service Date/Time: June 11:49 - CONCLUSION: 1. The findings on the current study a very similar to the prior study from 8 days ago with a abnormal low-density mass involving the body of the pancreas and adjacent retroperitoneal structures measuring approximately 5.2 x 4.4 cm. 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 2. 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 There are also 2 low-density lesions that appear more masslike measuring up to 11 mm and may represent lesions or perfusion related abnormalities. These findings are new since the prior study. 3. Abnormal enhancement of the liver likely related to narrowing/occlusion of the portal vein with 3 low-density lesions identified measuring up to 10 mm. These are incompletely characterized but could represent metastatic lesions. 4. There is a stable small volume of free fluid within the abdomen and pelvis. Savage Sarmiento MD Administered Medications Medications (Trade) Dose Ordered Sig/Cristiane Route PRN Reason Start Time Stop Time Status Last Admin Dose Admin Sodium Chloride (NS 1000 ml Inj) 1,000 ml @ 100 mls/hr Q10H IV 07/10/16 14:12 07/12/16 06:12 Senna/Docusate Sodium (Carla-Colace) 1 tab BID PO 07/10/16 21:00 07/11/16 09:03 Divalproex Sodium (Depakote Er) 500 mg BID PO 07/10/16 21:00 07/11/16 21:57 Lurasidone HCl (Latuda) 40 mg HS PO 07/10/16 21:00 07/11/16 21:57 Mirtazapine (Remeron) 15 mg HS PO 07/10/16 21:00 07/11/16 21:57 Sertraline HCl (Zoloft) 50 mg DAILY PO 07/11/16 09:00 07/11/16 09:03 Morphine Sulfate (Oramorph Sr) 30 mg Q12HR PO 07/10/16 21:00 07/11/16 21:56 Hydromorphone HCl (Dilaudid TUB WASHER Inj) 6 mg UNSCH IV 07/11/16 10:30 07/12/16 06:11 TUB WASHER Dosage Infused (Pha) 1 Q8HR .XX 07/11/16 14:00 07/12/16 06:00 Objective Remarks GENERAL: Middle aged male, sitting in bed watching TV in no distress. SKIN: Warm and dry. HEAD: Normocephalic. EYES: No injection or drainage. Wears glasses. NECK: Supple, trachea midline. CARDIOVASCULAR: +S1/S2. No murmur appreciated. RESPIRATORY: Breathing easy and unlabored on RA. Lungs clear with mild bibasilar crackles. GASTROINTESTINAL: Abdomen soft. Mildly tender to palpation. EXTREMITIES: No cyanosis, or edema. NEUROLOGICAL: No obvious focal deficit. Awake, alert, and oriented x3. PSYCHIATRIC: Answering questions appropriately. Assessment/Plan Problem List: (1) Pancreatic mass Status: Acute Plan: -- Very concerning for pancreatic adenocarcinoma with mets to the liver. -- 07/11/16: CT guided liver biopsy. Pathology pending. -- CT scan on 07/02/16 showed 3 liver lesions that may possibly be mets. -- CA 19-9 levels are elevated. Hx:/Hospital Workup: In February 2016 Mr. Alejandro began having some diffuse upper abdominal pain that was associated with anorexia, weight loss, and fatigue. He has lost 70 pounds total since that time. A CT scan of the abdomen pelvis on 02/17 revealed no abnormalities per the report. An MRCP on 05/16/16 revealed a normal pancreas. Eventually the patient was referred to Dr Bennett for a cholecystectomy due to the nature of the pain as well as a HIDA scan that showed non filling of the gall bladder. Despite the cholecystectomy his symptoms did not improve and he returned to the ER on 07/02/[address] scan of the abdomen/pelvis which revealed a large ill defined low attenuation mass involving the body of the pancreas which encased the celiac axis and the superior mesenteric artery. There were also small liver lesions that may represent metastases. CA 19-9 levels are elevated as well. (2) Abdominal pain Status: Acute Plan: 07/12/16: Dilaudid TUB WASHER pump. -- Per patient this is currently under control Assessment 50 y/o male who presents to the ER with persistent abdominal pain, fatigue and weight loss. Plan 1. Resume Lovenox prophylaxis 2. Await pathology results 3. Pt may be a candidate for palliative systemic chemotherapy. 4. Supportive care. Attending Statement The exam, history, and the medical decision-making described in the above note were completed with the assistance of the mid-level provider. I reviewed and agree with the findings presented. I attest that I had a [id number] encounter with the patient on the same day, and personally performed and documented my assessment and findings in the medical record. Still has abdominal pain. Using the dilaudid TUB WASHER regularly. Will add Morphine ER. Continue dilaudid TUB WASHER for now. Path is pending. Elaina Reese Jul 12, 2016 07:29 John Piper MD Jul 12, 2016 11:27
[2016-07-12 07:37] LABS: HEMATOCRIT 33.4 % (39.0-51.0); MEAN CELL VOLUME 90.5 FL (80.0-100.0); MEAN CORPUSCULAR HEMOGLOBIN 30.4 PG (27.0-34.0); MEAN CORPUSCULAR HGB CONC 33.5 % (32.0-36.0); PLATELET COUNT 118 TH/MM3 (150-450); RED BLOOD COUNT 3.69 MIL/MM3 (4.50-5.90); RED CELL DISTRIBUTION WIDTH 16.3 % (11.6-17.2); REVIEW FLAG FINAL; WHITE BLOOD COUNT 6.5 TH/MM3 (4.0-11.0)
[2016-07-12 08:11] LABS: ANION GAP 8 MEQ/L (5-15); AST (GOT) 18 U/L (15-37); BICARBONATE 30.2 MEQ/L (21.0-32.0); BLOOD UREA NITROGEN 4 MG/DL (7-18); CHLORIDE 104 MEQ/L (98-107); GLOMERULAR FILTRATION RATE 177 ML/MIN (>89); POTASSIUM 3.3 MEQ/L (3.5-5.1); SODIUM (NA) 142 MEQ/L (136-145)
[2016-07-12 08:14] LABS: ALKALINE PHOSPHATASE 327 U/L (45-117); ALT (GPT) 51 U/L (12-78); TOTAL BILIRUBIN ADULT 1.6 MG/DL (0.2-1.0)
[2016-07-12] MEDS: SODIUM CHLORIDE 0.9% FLUSH 5 ML FLUSH FLUSH SCH ×2 (09:00→20:11)
[2016-07-12] MEDS: DIVALPROEX SODIUM E.R. 500 MG TAB PO SCH ×2 (09:59→20:11)
[2016-07-12] MEDS: ENOXAPARIN SODIUM 40 MG/0.4 ML SYRINGE SQ SCH (09:59)
[2016-07-12] MEDS: SERTRALINE HCL 50 MG TAB PO SCH (10:00)
[2016-07-12] MEDS: MORPHINE SULFATE 30 MG CONTROLLED RELEASE TAB PO SCH ×2 (10:01→20:11)
[2016-07-12] MEDS: DOCUSATE SODIUM 50 MG/SENNA 8.6 MG TAB PO SCH ×2 (10:02→21:23)
--- NOTE | 2016-07-12 11:37 | HHI.FPPN ---
Subjective Remarks Patient is doing well this morning. His pain is controlled with his medications. No chest pain, nausea, vomiting. Continues to have diarrhea but slightly improved. (Felix Workman MD R2) Remarks Pt. is tearful, was told that he had 3 months to live. He was also very concerned about finances and how he will afford his medications at discharge. ( Bridgette Workman MD) Objective Vitals Vital Signs Date Time Temp Pulse Resp B/P Pulse Ox O2 Delivery O2 Flow Rate FiO2 07/12/16 11:11 98 21 07/12/16 08:00 98.2 105 18 108/67 97 07/12/16 06:11 16 07/12/16 06:00 16 07/12/16 04:00 97.2 105 17 110/66 98 07/12/16 00:00 97.1 78 18 102/66 98 07/11/16 22:56 16 07/11/16 22:16 93 07/11/16 22:00 16 07/11/16 20:00 97.8 96 18 131/75 99 07/11/16 18:31 18 07/11/16 16:00 97.2 78 16 97/57 96 07/11/16 14:00 18 07/11/16 13:00 92 16 106/63 94 07/11/16 12:30 84 18 102/59 94 07/11/16 12:00 83 18 105/59 93 I/O 07/11/16 07/11/16 07/11/16 07/12/16 07/12/16 07/12/16 06:59 14:59 22:59 06:59 14:59 22:59 Intake Total 0 ml 780 ml 240 ml Balance 0 ml 780 ml 240 ml Intake Oral 0 ml 780 ml 240 ml # Voids 1 5 1 # Bowel Movements 0 0 (Felix Workman MD R2) Result Diagram: 07/12/16 0725 07/12/16 0725 Objective Remarks O. CONSTITUTIONAL/GEN: normally nourished. In no acute distress EYES: conjunctiva normal, PERRLA, EOMI. No scleral icterus. ENT: Mouth and pharynx normal. MM moist. NECK: thyroid midline, carotids symmetrical. LUNGS: clear A-P, respiratory effort is normal. CARDIOVASCULAR: RR without murmur or gallop. GI/ABD: soft without masses, without organomegaly. BS +. : no CVA tenderness NEURO: No focal deficits. SKIN: color pale, no rashes noted. HEME/LYMPH: no bruising, petechia or significant adenopathy MUSC: back is normal in appearance. Extremities are normal in appearance. PSYCH/MENTAL STATUS: Alert and oriented x 3. (Felix Workman MD R2) A/P Assessment and Plan Patient is a 50-year-old man with a known pancreatic mass who presents with intractable abdominal pain. Pt is s/p cholecystectomy on 06/06/16, s/p ERCP with stent placement, with imaging concerning for pancreatic mass consistent with pancreatic adenocarcinoma with possible liver metastasis and elevated tumor markers with CA-19-9, who is being admitted for pain management and CT- guided biopsy. Expect pathology report in 3 days, which will guide palliative therapy. Discharge Planning Pending pain control and oncology workup (Felix Workman MD R2) Assessment and Plan Discussed with Dr. Piper who started long-acting morphine in anticipation for discharge off [employer]. Attending Attestation Patient seen and examined. Case reviewed and discussed with the resident team. Agree with plan of care as discussed with me and documented in the resident note. (Bridgette Workman MD) Problem List: (1) Intractable abdominal pain Status: Acute Plan: Patient is a 50-year-old man with a known pancreatic mass who presents with intractable abdominal pain. Pt is s/p cholecystectomy on 06/06/16, s/p ERCP with stent placement, with imaging concerning for pancreatic mass consistent with pancreatic adenocarcinoma with possible liver metastasis and elevated tumor markers with CA-19-9, who is being admitted for pain management, biopsy, and oncology workup. [employer] pump: * Bolus dose of 0.4 mg * Bolus lockout time of 10 minutes * 1 hour limit of 2.0 mg * Basal rate of 0.6 mg per hour * Narcan 0.4 mg IV stat if respiratory rate less than 10 breaths per minute Toradol 30 mg IV push every 6 hours -CT guided liver biopsy on 07/11; pathology pending. (2) Pancreatic mass Status: Acute Plan: See assessment and plan above. Medical oncology consult. CT-guided biopsy of liver lesion. Pathology pending Palliative Therapy pending tissue diagnosis (3) Bipolar disorder Status: Chronic Plan: Patient with bipolar disorder diagnosed at 16 years of age with comorbid conditions such as anxiety and depression. Continue home medications as below: Depakote ER 500 mg by mouth twice a day Latuda 40 mg by mouth daily at bedtime Mirtazapine/Remeron 15 mg by mouth daily at bedtime Sertraline/Zoloft 100 mg by mouth daily (4) FEN/DVT PPX/GI PPX Status: Acute Plan: Fluids: Maintenance fluids with normal saline IV at 100 [place]'s per hour Electrolytes: Monitor and replete as needed Nutrition: Regular basic diet as tolerated GI prophylaxis: None currently indicated at this time DVT prophylaxis: Lovenox 40 mg subcutaneous every 24 hours (Felix Workman MD R2) Felix Workman MD R2 Jul 12, 2016 11:37 Bridgette Workman MD Jul 12, 2016 11:54
[2016-07-12] MEDS ORDERED: MORPHINE SULFATE 30 MG CONTROLLED RELEASE TAB PO SCH (12:00)
[2016-07-12] MEDS: LURASIDONE 40 MG TAB PO SCH (20:08)
[2016-07-12] MEDS: MIRTAZAPINE 15 MG TAB PO SCH (20:11)
[2016-07-13] VITALS (7 sets, daily range): BP systolic 100–122; BP diastolic 59–68; PULSE 93–115; RESP 16–18; TEMP 97.3–99.4; O2SAT 93–99
[2016-07-13] MEDS: HYDROmorphone HCL PCA 6 MG/30 ML IV SCH ×3 (04:27→17:52)
[2016-07-13] MEDS: SODIUM CHLOR 0.9% 1000 ML INJ 1,000 ML IV SCH ×3 (05:40→21:28)
[2016-07-13] MEDS: PCA - TOTAL MG DILAUDID DELIVERED PER SHIFT SCH ×3 (05:41→21:26)
[2016-07-13 07:54] LABS: AUTOMATED NEUTROPHIL # 5.2 TH/MM3 (1.8-7.7); BASOPHIL % 0.2 % (0.0-2.0); EOSINOPHIL # 0.1 TH/MM3 (0-0.4); EOSINOPHIL % 1.4 % (0.0-4.0); HEMATOCRIT 34.1 % (39.0-51.0); HEMO FLAGS DIFF FINAL; LYMPH % 11.7 % (9.0-44.0); LYMPHOCYTE # 0.8 TH/MM3 (1.0-4.8); MEAN CELL VOLUME 91.1 FL (80.0-100.0); MEAN CORPUSCULAR HEMOGLOBIN 30.4 PG (27.0-34.0); MEAN CORPUSCULAR HGB CONC 33.4 % (32.0-36.0); MONO % 6.3 % (0.0-8.0); NEUT % 80.4 % (16.0-70.0); PLATELET COUNT 110 TH/MM3 (150-450); RED BLOOD COUNT 3.74 MIL/MM3 (4.50-5.90); RED CELL DISTRIBUTION WIDTH 16.5 % (11.6-17.2); WHITE BLOOD COUNT 6.5 TH/MM3 (4.0-11.0)
[2016-07-13 07:57] LABS: POTASSIUM 3.5 MEQ/L (3.5-5.1)
[2016-07-13] MEDS: MORPHINE SULFATE 30 MG CONTROLLED RELEASE TAB PO SCH ×2 (08:57→21:27)
[2016-07-13] MEDS: DIVALPROEX SODIUM E.R. 500 MG TAB PO SCH ×2 (08:57→21:27)
[2016-07-13] MEDS: ENOXAPARIN SODIUM 40 MG/0.4 ML SYRINGE SQ SCH (08:57)
[2016-07-13] MEDS: SODIUM CHLORIDE 0.9% FLUSH 5 ML FLUSH FLUSH SCH ×2 (08:57→21:00)
[2016-07-13] MEDS: DOCUSATE SODIUM 50 MG/SENNA 8.6 MG TAB PO SCH ×2 (08:57→21:00)
[2016-07-13] MEDS: SERTRALINE HCL 50 MG TAB PO SCH (08:57)
[2016-07-13] MEDS ORDERED: POLYETHYLENE GLYCOL 17 GM PKG PO PRN (10:15)
--- NOTE | 2016-07-13 10:48 | HHI.FPPN ---
Subjective Remarks No acute events overnight. Except for some tachycardia to as high as 115 bpm and some low pulse ox to a lowest of 93% on room air, afebrile vital signs stable overnight. Per nurse report, patient had pain level of 5-6 this morning. Patient reports that he had a pain pill at breakfast, so he currently reports his pain as a 3-4. Patient also reports that he had his first bowel movement 3 days or sooner. He described it as not liquid, soft solid stool. Patient also requested nicotine patch. (Demarcus Chan MD R1) Objective Vitals Vital Signs Date Time Temp Pulse Resp B/P Pulse Ox O2 Delivery O2 Flow Rate FiO2 07/13/16 08:00 99.4 93 16 101/63 96 07/13/16 05:41 16 07/13/16 04:27 16 07/13/16 04:00 99.3 115 18 122/65 93 07/13/16 00:00 97.3 95 16 113/59 95 07/12/16 21:27 16 07/12/16 20:28 97 21 07/12/16 20:11 16 07/12/16 19:00 97.7 97 16 114/70 98 07/12/16 16:00 98.3 99 18 108/60 97 07/12/16 14:00 16 07/12/16 12:00 99.1 99 18 116/66 97 07/12/16 11:11 98 21 I/O 07/12/16 07/12/16 07/12/16 07/13/16 07/13/16 07/13/16 07:00 15:00 23:00 07:00 15:00 23:00 Intake Total 240 ml 480 ml 240 ml 950 ml Balance 240 ml 480 ml 240 ml 950 ml Intake Oral 240 ml 480 ml 240 ml IV Total 950 ml # Voids 1 4 # Bowel Movements 0 1 (Demarcus Chan MD R1) Result Diagram: 07/13/16 0650 07/13/16 0650 Imaging Last Impressions Liver Biopsy CT 07/11/16 0000 Signed Impressions: Service Date/Time: Monday, July 11, 2016 10:10 - CONCLUSION: Uncomplicated CT guided biopsy. Gene Field MD Abdomen/Pelvis CT 07/10/16 1008 Signed Impressions: Service Date/Time: June 11:49 - CONCLUSION: 1. The findings on the current study a very similar to the prior study from 8 days ago with a abnormal low-density mass involving the body of the pancreas and adjacent retroperitoneal structures measuring approximately 5.2 x 4.4 cm. 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 2. 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 There are also 2 low-density lesions that appear more masslike measuring up to 11 mm and may represent lesions or perfusion related abnormalities. These findings are new since the prior study. 3. Abnormal enhancement of the liver likely related to narrowing/occlusion of the portal vein with 3 low-density lesions identified measuring up to 10 mm. These are incompletely characterized but could represent metastatic lesions. 4. There is a stable small volume of free fluid within the abdomen and pelvis. Savage Sarmiento MD Objective Remarks O. CONSTITUTIONAL/GEN: normally nourished, sitting up in chair in no acute distress EYES: conjunctiva normal, PERRLA, EOMI. No scleral icterus. ENT: MM moist. NECK: thyroid midline, carotids symmetrical. LUNGS: Clear to auscultation bilaterally, respiratory effort is normal. CARDIOVASCULAR: RRR without murmur or gallop. GI/ABD: soft without masses, without organomegaly. BS +. : no CVA tenderness NEURO: No focal deficits. SKIN: color pale, no rashes noted. HEME/LYMPH: no bruising, petechia or significant adenopathy MUSC: back is normal in appearance. Except for some trace ankle edema, extremities are normal in appearance. PSYCH/MENTAL STATUS: Alert and oriented x 3. (Demarcus Chan MD R1) A/P Assessment and Plan 50-year-old man pancreatic mass, likely metastatic pancreatic cancer presented with intractable abdominal pain. Admitted for pain control and biopsy to guide palliative chemotherapy. Discharge Planning Pending pain control and oncology workup (Demarcus Chan MD R1) Attending Attestation Patient seen and examined. Case reviewed and discussed with the resident team. Agree with plan of care as discussed with me and documented in the resident note. (Bridgette Workman MD) Problem List: (1) Intractable abdominal pain Status: Acute Plan: Patient is a 50-year-old man with a known pancreatic mass who presents with intractable abdominal pain. Pt is s/p cholecystectomy on 06/06/16, s/p ERCP with stent placement, with imaging concerning for pancreatic mass consistent with pancreatic adenocarcinoma with possible liver metastasis and elevated tumor markers with CA-19-9, who is being admitted for pain management, biopsy, and oncology workup. [employer] pump: * Bolus dose of 0.4 mg * Bolus lockout time of 10 minutes * 1 hour limit of 2.0 mg * Basal rate of 0.6 mg per hour * Narcan 0.4 mg IV stat if respiratory rate less than 10 breaths per minute Carla-Colace 2 tablets by mouth daily at bedtime MiraLAX when necessary for constipation Toradol 30 mg IV push every 6 hours Dilaudid 1 mg by mouth every 6 hours when necessary for pain 1-10 Morphine SR 30 mg by mouth every 12 hours Oxycodone 10 mg by mouth every 4 hours when necessary for breakthrough pain CT guided liver biopsy on 07/11; pathology pending. (2) Pancreatic mass Status: Acute Plan: See assessment and plan above. Medical oncology consult. CT-guided biopsy of liver lesion. Pathology pending Palliative Therapy pending tissue diagnosis (3) Bipolar disorder Status: Chronic Plan: Patient with bipolar disorder diagnosed at 16 years of age with comorbid conditions such as anxiety and depression. Continue home medications as below: Depakote ER 500 mg by mouth twice a day Latuda 40 mg by mouth daily at bedtime Mirtazapine/Remeron 15 mg by mouth daily at bedtime Sertraline/Zoloft 100 mg by mouth daily (4) FEN/DVT PPX/GI PPX Status: Acute Plan: Fluids: Maintenance fluids with normal saline IV at 100 milliliters per hour Electrolytes: Monitor and replete as needed Nutrition: Regular basic diet as tolerated GI prophylaxis: None currently indicated at this time DVT prophylaxis: Lovenox 40 mg subcutaneous every 24 hours (Demarcus Chan MD R1) Demarcus Chan MD R1 Jul 13, 2016 10:48 Bridgette Workman MD Jul 13, 2016 12:06
[2016-07-13] MEDS: NICOTINE 21 MG/24 HR PATCH TD SCH (11:10)
--- NOTE | 2016-07-13 12:23 | PD.ONC.PN ---
Subjective Subjective Remarks Tmax this am 99.4. Pt has no complaints. He states his abdominal pain is improving. He is still using the Dilaudid FORMING MACHINE ADJUSTER. He denies SOB. Objective Data Date Time Temp Pulse Resp B/P Pulse Ox O2 Delivery O2 Flow Rate FiO2 07/13/16 11:13 16 07/13/16 08:00 99.4 93 16 101/63 96 07/13/16 05:41 16 07/13/16 04:27 16 07/13/16 04:00 99.3 115 18 122/65 93 07/13/16 00:00 97.3 95 16 113/59 95 07/12/16 21:27 16 07/12/16 20:28 97 21 07/12/16 20:11 16 07/12/16 19:00 97.7 97 16 114/70 98 07/12/16 16:00 98.3 99 18 108/60 97 07/12/16 14:00 16 07/13/16 07/13/16 07/13/16 07:00 15:00 23:00 Intake Total 950 ml Balance 950 ml Result Diagram: 07/13/16 0650 07/13/16 0650 Laboratory Results Laboratory Tests Test 07/13/16 06:50 White Blood Count 6.5 TH/MM3 Red Blood Count 3.74 MIL/MM3 Hemoglobin 11.4 GM/DL Hematocrit 34.1 % Mean Corpuscular Volume 91.1 FL Mean Corpuscular Hemoglobin 30.4 PG Mean Corpuscular Hemoglobin 33.4 % Concent Red Cell Distribution Width 16.5 % Platelet Count 110 TH/MM3 Mean Platelet Volume 9.7 FL Neutrophils (%) (Auto) 80.4 % Lymphocytes (%) (Auto) 11.7 % Monocytes (%) (Auto) 6.3 % Eosinophils (%) (Auto) 1.4 % Basophils (%) (Auto) 0.2 % Neutrophils # (Auto) 5.2 TH/MM3 Lymphocytes # (Auto) 0.8 TH/MM3 Monocytes # (Auto) 0.4 TH/MM3 Eosinophils # (Auto) 0.1 TH/MM3 Basophils # (Auto) 0.0 TH/MM3 CBC Comment DIFF FINAL Differential Comment Sodium Level 140 MEQ/L Potassium Level 3.5 MEQ/L Chloride Level 103 MEQ/L Carbon Dioxide Level 30.0 MEQ/L Anion Gap 7 MEQ/L Blood Urea Nitrogen 6 MG/DL Creatinine 0.49 MG/DL Estimat Glomerular Filtration 181 ML/MIN Rate Random Glucose 146 MG/DL Calcium Level 8.1 MG/DL Administered Medications Medications (Trade) Dose Ordered Sig/Cristiane Route PRN Reason Start Time Stop Time Status Last Admin Dose Admin Sodium Chloride (NS 1000 ml Inj) 1,000 ml @ 100 mls/hr Q10H IV 07/10/16 14:12 07/13/16 11:13 Divalproex Sodium (Depakote Er) 500 mg BID PO 07/10/16 21:00 07/13/16 08:57 Lurasidone HCl (Latuda) 40 mg HS PO 07/10/16 21:00 07/12/16 20:08 Mirtazapine (Remeron) 15 mg HS PO 07/10/16 21:00 07/12/16 20:11 Morphine Sulfate (Oramorph Sr) 30 mg Q12HR PO 07/10/16 21:00 07/13/16 08:57 Hydromorphone HCl (Dilaudid FORMING MACHINE ADJUSTER Inj) 6 mg UNSCH IV 07/11/16 10:30 07/13/16 11:13 FORMING MACHINE ADJUSTER Dosage Infused (Pha) 1 Q8HR .XX 07/11/16 14:00 07/13/16 05:41 Enoxaparin Sodium (Lovenox Inj) 40 mg Q24H SQ 07/12/16 08:00 07/13/16 08:57 Sertraline HCl (Zoloft) 100 mg DAILY PO 07/13/16 09:00 07/13/16 08:57 Nicotine (Habitrol 21 Mg Patch.24 Hr) 1 patch DAILY TD 07/13/16 10:15 07/13/16 11:10 Objective Remarks GENERAL: Middle aged male, sitting up in chair at bedside in no acute distress. SKIN: Warm and dry. HEAD: Normocephalic. EYES: No injection or drainage. NECK: Supple, trachea midline. CARDIOVASCULAR: +S1/S2. No murmur appreciated. RESPIRATORY: Breathing easy and unlabored on RA. Lungs clear throughout. GASTROINTESTINAL: +BS. Mildly tender to palpation. EXTREMITIES: No cyanosis, or edema. MUSCULOSKELETAL: Adequate muscle tone. Walking around in room. NEUROLOGICAL: No obvious focal deficit. Awake, alert, and oriented x3. Assessment/Plan Problem List: (1) Pancreatic mass Status: Acute Plan: -- Very concerning for pancreatic adenocarcinoma with mets to the liver. -- 07/11/16: CT guided liver biopsy. Pathology pending. -- CT scan on 07/02/16 showed 3 liver lesions that may possibly be mets. -- CA 19-9 levels are elevated. Hx:/Hospital Workup: In February 2016 Mr. Alejandro began having some diffuse upper abdominal pain that was associated with anorexia, weight loss, and fatigue. He has lost 70 pounds total since that time. A CT scan of the abdomen pelvis on 02/17 revealed no abnormalities per the report. An MRCP on 05/16/16 revealed a normal pancreas. Eventually the patient was referred to Dr Bennett for a cholecystectomy due to the nature of the pain as well as a HIDA scan that showed non filling of the gall bladder. Despite the cholecystectomy his symptoms did not improve and he returned to the ER on 07/02/[address] scan of the abdomen/pelvis which revealed a large ill defined low attenuation mass involving the body of the pancreas which encased the celiac axis and the superior mesenteric artery. There were also small liver lesions that may represent metastases. CA 19-9 levels are elevated as well. (2) Abdominal pain Status: Acute Plan: 07/13/16: Continue Oramorph 30mg Q12h. --Pt also has dilaudid FORMING MACHINE ADJUSTER pump. --Per patient his abdominal pain is currently under control Assessment 50 y/o male who presents to the ER with persistent abdominal pain, fatigue and weight loss. Plan 1. Attempt to wean Dilaudid FORMING MACHINE ADJUSTER as he will likely be D/C'd early this week. 2. Await pathology results- likely Thursday or Thursday. 3. Pt may be a candidate for palliative systemic chemotherapy, depending on results of pathology. 4. Supportive care. Attending Statement The exam, history, and the medical decision-making described in the above note were completed with the assistance of the mid-level provider. I reviewed and agree with the findings presented. I attest that I had a [id number] encounter with the patient on the same day, and personally performed and documented my assessment and findings in the medical record. Pain better controlled with Morphine ER. Possibly wean off dilaudid FORMING MACHINE ADJUSTER pump tomorrow. Path pending. Elaina Reese Jul 13, 2016 12:23 John Piper MD Jul 13, 2016 13:05
[2016-07-13] MEDS: MIRTAZAPINE 15 MG TAB PO SCH (21:26)
[2016-07-13] MEDS: LURASIDONE 40 MG TAB PO SCH (21:26)
[2016-07-14] VITALS (8 sets, daily range): BP systolic 94–125; BP diastolic 56–71; PULSE 83–110; RESP 17–20; TEMP 97.1–98.8; O2SAT 92–98
[2016-07-14] MEDS: HYDROmorphone HCL PCA 6 MG/30 ML IV SCH ×3 (00:21→14:50)
[2016-07-14] MEDS: PCA - TOTAL MG DILAUDID DELIVERED PER SHIFT SCH ×3 (06:00→21:36)
--- NOTE | 2016-07-14 08:03 | HHI.FPPN ---
Subjective Remarks Patient is doing well this morning. He still complains of diarrhea but this is improved since admission. No chest pain or vomiting. He has minimal nausea. His pain is well-controlled with the current regimen. He reports needing to use the MANAGER FINE DINING pump roughly twice an hour. He understands this needs to be weaned if he is to get out of the hospital. (Felix Workman MD R2) Objective Vitals Vital Signs Date Time Temp Pulse Resp B/P Pulse Ox O2 Delivery O2 Flow Rate FiO2 07/14/16 06:00 16 07/14/16 04:00 98.8 92 17 108/62 96 07/14/16 01:00 18 07/14/16 00:21 18 07/14/16 00:00 98.6 83 18 97/56 95 07/13/16 22:30 18 07/13/16 21:26 18 07/13/16 21:15 94 21 07/13/16 20:00 99.2 97 18 102/60 97 07/13/16 17:52 18 07/13/16 16:00 98.4 105 16 118/68 96 07/13/16 15:30 16 07/13/16 12:00 98.0 93 16 100/67 99 07/13/16 11:13 16 07/13/16 08:00 99.4 93 16 101/63 96 I/O 07/13/16 07/13/16 07/13/16 07/14/16 07/14/16 07/14/16 07:00 15:00 23:00 07:00 15:00 23:00 Intake Total 950 ml 3869 ml 240 ml Balance 950 ml 3869 ml 240 ml Intake Oral 720 ml 240 ml IV Total 950 ml 3149 ml # Voids 4 3 2 # Bowel Movements 2 2 2 (Felix Workman MD R2) Result Diagram: 07/13/16 0650 07/13/16 0650 Objective Remarks O. CONSTITUTIONAL/GEN: normally nourished, sitting up in chair in no acute distress EYES: conjunctiva normal, PERRLA, EOMI. No scleral icterus. ENT: MM moist. LUNGS: Clear to auscultation bilaterally, respiratory effort is normal. CARDIOVASCULAR: RRR without murmur or gallop. GI/ABD: soft without masses, without organomegaly. BS +. NEURO: No focal deficits. SKIN: color pale, no rashes noted. HEME/LYMPH: no bruising, petechia or significant adenopathy MUSC: back is normal in appearance. Except for some trace ankle edema, extremities are normal in appearance. PSYCH/MENTAL STATUS: Alert and oriented x 3. (Felix Workman MD R2) A/P Assessment and Plan 50-year-old man pancreatic mass, likely metastatic pancreatic cancer presented with intractable abdominal pain. Admitted for pain control and biopsy to guide palliative chemotherapy. Discharge Planning Pending pain control and oncology workup (Felix Workman MD R2) Attending Attestation Patient seen and examined. Case reviewed and discussed with the resident team. Agree with plan of care as discussed with me and documented in the resident note. (Bridgette Workman MD) Problem List: (1) Intractable abdominal pain Status: Acute Plan: Patient is a 50-year-old man with a known pancreatic mass who presents with intractable abdominal pain. Pt is s/p cholecystectomy on 06/06/16, s/p ERCP with stent placement, with imaging concerning for pancreatic mass consistent with pancreatic adenocarcinoma with possible liver metastasis and elevated tumor markers with CA-19-9, who is being admitted for pain management, biopsy, and oncology workup. MANAGER FINE DINING pump: * Bolus dose of 0.4 mg * Bolus lockout time of 10 minutes * 1 hour limit of 2.0 mg * Basal rate of 0.6 mg per hour * Narcan 0.4 mg IV stat if respiratory rate less than 10 breaths per minute Morphine SR 30 mg by mouth every 12 hours Dilaudid 1 mg by mouth every 6 hours when necessary for pain 1-10 Oxycodone 10 mg by mouth every 4 hours when necessary for breakthrough pain Carla-Colace 2 tablets by mouth daily at bedtime MiraLAX when necessary for constipation CT guided liver biopsy on 07/11; pathology pending. (2) Pancreatic mass Status: Acute Plan: See assessment and plan above. Medical oncology consult. CT-guided biopsy of liver lesion. Pathology pending Palliative Therapy pending tissue diagnosis (3) Bipolar disorder Status: Chronic Plan: Patient with bipolar disorder diagnosed at 16 years of age with comorbid conditions such as anxiety and depression. Continue home medications as below: Depakote ER 500 mg by mouth twice a day Latuda 40 mg by mouth daily at bedtime Mirtazapine/Remeron 15 mg by mouth daily at bedtime Sertraline/Zoloft 100 mg by mouth daily (4) FEN/DVT PPX/GI PPX Status: Acute Plan: Fluids: Maintenance fluids with normal saline IV at 100 milliliters per hour Electrolytes: Monitor and replete as needed Nutrition: Regular basic diet as tolerated GI prophylaxis: None currently indicated at this time DVT prophylaxis: Lovenox 40 mg subcutaneous every 24 hours (Felix Workman MD R2) Felix Workman MD R2 Jul 14, 2016 08:03 Bridgette Workman MD Jul 14, 2016 13:44
[2016-07-14] MEDS: DIVALPROEX SODIUM E.R. 500 MG TAB PO SCH ×2 (08:32→21:32)
[2016-07-14] MEDS: ENOXAPARIN SODIUM 40 MG/0.4 ML SYRINGE SQ SCH (08:32)
[2016-07-14] MEDS: SERTRALINE HCL 50 MG TAB PO SCH (08:32)
[2016-07-14] MEDS: MORPHINE SULFATE 30 MG CONTROLLED RELEASE TAB PO SCH ×2 (08:32→21:31)
[2016-07-14] MEDS: SODIUM CHLOR 0.9% 1000 ML INJ 1,000 ML IV SCH (08:33)
[2016-07-14] MEDS: SODIUM CHLORIDE 0.9% FLUSH 5 ML FLUSH FLUSH SCH ×2 (08:33→21:00)
[2016-07-14] MEDS: NICOTINE 21 MG/24 HR PATCH TD SCH (08:33)
[2016-07-14] MEDS: REMOVE OLD PATCH T-DERMAL SCH (08:33)
[2016-07-14] MEDS: REMOVE OLD PATCH TD SCH (09:00)
--- NOTE | 2016-07-14 10:02 | PD.ONC.PN ---
Subjective Subjective Remarks Mr. Alejandro reports pain control is improved, he needs the FARM GENERAL MANAGER pump occasionally. He reports abd distention, bloating and cramps. He thinks some of the cramps may be related to his laxative use. He also reports lower extremity swelling, he tells me he has gained about 6 pounds since he came into the hospital. Objective Data Date Time Temp Pulse Resp B/P Pulse Ox O2 Delivery O2 Flow Rate FiO2 07/14/16 08:12 16 07/14/16 08:10 97.2 102 20 94/56 95 07/14/16 07:56 96 21 07/14/16 06:00 16 07/14/16 04:00 98.8 92 17 108/62 96 07/14/16 01:00 18 07/14/16 00:21 18 07/14/16 00:00 98.6 83 18 97/56 95 07/13/16 22:30 18 07/13/16 21:26 18 07/13/16 21:15 94 21 07/13/16 20:00 99.2 97 18 102/60 97 07/13/16 17:52 18 07/13/16 16:00 98.4 105 16 118/68 96 07/13/16 15:30 16 07/13/16 12:00 98.0 93 16 100/67 99 07/13/16 11:13 16 07/14/16 07/14/16 07/14/16 06:59 14:59 22:59 Intake Total 240 ml 360 ml Balance 240 ml 360 ml Result Diagram: 07/13/16 0650 07/13/16 0650 Administered Medications Medications (Trade) Dose Ordered Sig/Cristiane Route PRN Reason Start Time Stop Time Status Last Admin Dose Admin Sodium Chloride (NS 1000 ml Inj) 1,000 ml @ 100 mls/hr Q10H IV 07/10/16 14:12 07/14/16 08:33 Divalproex Sodium (Depakote Er) 500 mg BID PO 07/10/16 21:00 07/14/16 08:32 Lurasidone HCl (Latuda) 40 mg HS PO 07/10/16 21:00 07/13/16 21:26 Mirtazapine (Remeron) 15 mg HS PO 07/10/16 21:00 07/13/16 21:26 Morphine Sulfate (Oramorph Sr) 30 mg Q12HR PO 07/10/16 21:00 07/14/16 08:32 Hydromorphone HCl (Dilaudid FARM GENERAL MANAGER Inj) 6 mg UNSCH IV 07/11/16 10:30 07/14/16 08:12 FARM GENERAL MANAGER Dosage Infused (Pha) 1 Q8HR .XX 07/11/16 14:00 07/14/16 06:00 Enoxaparin Sodium (Lovenox Inj) 40 mg Q24H SQ 07/12/16 08:00 07/14/16 08:32 Sertraline HCl (Zoloft) 100 mg DAILY PO 07/13/16 09:00 07/14/16 08:32 Nicotine (Habitrol 21 Mg Patch.24 Hr) 1 patch DAILY TD 07/13/16 10:15 07/14/16 08:33 Miscellaneous Information 1 DAILY T-DERMAL 07/14/16 09:00 07/14/16 08:33 Objective Remarks GENERAL PHYSICAL APPEARANCE: Mr. Alejandro is a middle-aged male. He is thin built and appears to be chronically ill. HEAD, EYES, EARS, NOSE, THROAT: Head is atraumatic and normocephalic. Conjunctivae are pale. The sclerae are icteric. Extraocular muscles intact. Pupils equal, round and reactive to light and accommodation. ORAL EXAM: No pharyngeal erythema. NECK EXAM: No palpable cervical or supraclavicular lymphadenopathy. RESPIRATORY EXAM: Good air movement bilaterally. No added breath sounds. CARDIOVASCULAR EXAM: Regular rate and rhythm. S1, S2. No obvious murmurs, rubs or gallops. ABDOMINAL EXAM: Thin belly, soft, nontender, nondistended, no palpable organ enlargement. Some epigastric tenderness is elicited. LOWER EXTREMITIES: No pretibial edema. No calf tenderness. MARKETING AUTOMATION SPECIALIST: No focal sensory or motor deficits. MUSCULOSKELETAL: Generally decreased muscle mass, tone and strength. Assessment/Plan Problem List: (1) Pancreatic mass Status: Acute Plan: -- Very concerning for pancreatic adenocarcinoma with mets to the liver. -- 07/11/16: CT guided liver biopsy. Pathology pending. -- CT scan on 07/02/16 showed 3 liver lesions that may possibly be mets. -- CA 19-9 levels are elevated. Hx:/Hospital Workup: In February 2016 Mr. Alejandro began having some diffuse upper abdominal pain that was associated with anorexia, weight loss, and fatigue. He has lost 70 pounds total since that time. A CT scan of the abdomen pelvis on 02/17 revealed no abnormalities per the report. An MRCP on 05/16/16 revealed a normal pancreas. Eventually the patient was referred to Dr Bennett for a cholecystectomy due to the nature of the pain as well as a HIDA scan that showed non filling of the gall bladder. Despite the cholecystectomy his symptoms did not improve and he returned to the ER on 07/02/[address] scan of the abdomen/pelvis which revealed a large ill defined low attenuation mass involving the body of the pancreas which encased the celiac axis and the superior mesenteric artery. There were also small liver lesions that may represent metastases. CA 19-9 levels are elevated as well. (2) Abdominal pain Status: Acute Plan: 07/13/16: Continue Oramorph 30mg Q12h. --Pt also has dilaudid FARM GENERAL MANAGER pump. --Per patient his abdominal pain is currently under control Assessment 50 y/o male who presents to the ER with persistent abdominal pain, fatigue and weight loss. Imaging studies reveal a pancreatic mass associated with liver lesions, concerning for metastatic disease to the liver. S/p CT guided biopsy of one of the liver lesions. Plan 1. Pancreatic mass associated with liver lesions: CT liver biopsy results are pending. I have requested infusion port placement for 07/15/2016 (lovenox put on hold). 2. Await pathology results- likely Thursday or Thursday. 3. Pt tells me he is motivated to pursue palliative systemic chemotherapy once his diagnosis is established. 4. Pain control: It seems he uses his dilaudid FARM GENERAL MANAGER infrequently, I have requested the nursing staff to tally the number of times the pt has pressed the button. He will need to be transitioned to oral pain control in order to be ready for d/c. Mark Rodríguez MD Jul 14, 2016 10:02
[2016-07-14] MEDS: DOCUSATE SODIUM 50 MG/SENNA 8.6 MG TAB PO SCH (21:00)
[2016-07-14] MEDS: LURASIDONE 40 MG TAB PO SCH (21:32)
[2016-07-14] MEDS: MIRTAZAPINE 15 MG TAB PO SCH (21:32)
[2016-07-14] MEDS: SIMETHICONE 125 MG CHEWABLE TAB PO PRN (21:33)
[2016-07-15] VITALS (11 sets, daily range): BP systolic 99–125; BP diastolic 46–69; PULSE 80–106; RESP 16–20; TEMP 96.8–98.6; O2SAT 95–99
[2016-07-15] MEDS: HYDROmorphone HCL PCA 6 MG/30 ML IV SCH (01:25)
[2016-07-15] MEDS: PCA - TOTAL MG DILAUDID DELIVERED PER SHIFT SCH (06:00)
--- NOTE | 2016-07-15 07:49 | PD.ONC.PN ---
Subjective Subjective Remarks Afebrile overnight. He c/o of pain in the abdomen and back, sharp in quality and radiating from back to abdomen. Patient states pain is controlled with current pain regimen. He states he is comfortable. He is NPO currently for port placement today. Objective Data Date Time Temp Pulse Resp B/P Pulse Ox O2 Delivery O2 Flow Rate FiO2 07/15/16 06:00 16 07/15/16 04:45 97.3 84 16 99/58 97 07/15/16 01:25 18 07/15/16 00:00 96.8 80 16 103/61 98 07/14/16 21:44 92 07/14/16 21:36 18 07/14/16 20:15 98.8 104 18 125/70 97 07/14/16 16:00 98.6 110 18 111/71 96 07/14/16 14:50 16 07/14/16 14:00 16 07/14/16 12:00 97.1 96 20 110/62 98 07/14/16 08:12 16 07/14/16 08:10 97.2 102 20 94/56 95 07/14/16 07:56 96 21 07/15/16 07/15/16 07/15/16 07:00 15:00 23:00 Intake Total 415 ml Balance 415 ml Result Diagram: 07/13/16 0650 07/13/16 0650 Administered Medications Medications (Trade) Dose Ordered Sig/Cristiane Route PRN Reason Start Time Stop Time Status Last Admin Dose Admin Divalproex Sodium (Depakote Er) 500 mg BID PO 07/10/16 21:00 07/14/16 21:32 Lurasidone HCl (Latuda) 40 mg HS PO 07/10/16 21:00 07/14/16 21:32 Mirtazapine (Remeron) 15 mg HS PO 07/10/16 21:00 07/14/16 21:32 COOLING PIPE INSPECTOR Dosage Infused (Pha) 1 Q8HR .XX 07/11/16 14:00 07/15/16 06:00 Enoxaparin Sodium (Lovenox Inj) 40 mg Q24H SQ 07/12/16 08:00 Hold 07/14/16 08:32 Sertraline HCl (Zoloft) 100 mg DAILY PO 07/13/16 09:00 07/14/16 08:32 Nicotine (Habitrol 21 Mg Patch.24 Hr) 1 patch DAILY TD 07/13/16 10:15 07/14/16 08:33 Miscellaneous Information 1 DAILY T-DERMAL 07/14/16 09:00 07/14/16 08:33 Hydromorphone HCl (Dilaudid COOLING PIPE INSPECTOR Inj) 6 mg UNSCH IV 07/14/16 10:00 07/15/16 01:25 Morphine Sulfate (Oramorph Sr) 45 mg Q12HR PO 07/14/16 21:00 07/14/16 21:31 Simethicone (Phazyme Chew) 125 mg Q6HR PRN PO GAS PAINS 07/14/16 21:00 07/14/16 21:33 Objective Remarks GENERAL: Pleasant middle aged male, sitting up in bed in nad. SKIN: Warm and dry. HEAD: Normocephalic. EYES: No injection or drainage. NECK: Supple, trachea midline. CARDIOVASCULAR: Regular rate and rhythm RESPIRATORY: Breath sounds equal bilaterally. No accessory muscle use. GASTROINTESTINAL: Abdomen soft, +TTP, epigastrium. nondistended. EXTREMITIES: No cyanosis. 1+ LE edema. MUSCULOSKELETAL: Adequate muscle tone. NEUROLOGICAL: awake alert and appropriate. no obvious focal deficit Assessment/Plan Problem List: (1) Abdominal pain Status: Acute Plan: 07/15/15: continue Oramorph 45mg PO q 12 hours. plan to stop COOLING PIPE INSPECTOR after port placement and transition to PO pain meds with IV available for severe breakthrough pain only. 07/14/15: Oramorph increased to 45mg PO q12h. 07/13/16: Continue Oramorph 30mg Q12h. (2) Carcinoma of pancreas metastatic to liver Status: Acute Plan: -- pathology shows moderately differentiated mucinous adenocarcinoma. -- CT scan on 07/02/16 showed 3 liver lesions that may possibly be mets. -- CA 19-9 levels are elevated. Hx:/Hospital Workup: In February 2016 Mr. Alejandro began having some diffuse upper abdominal pain that was associated with anorexia, weight loss, and fatigue. He has lost 70 pounds total since that time. A CT scan of the abdomen pelvis on 02/17 revealed no abnormalities per the report. An MRCP on 05/16/16 revealed a normal pancreas. Eventually the patient was referred to Dr Bennett for a cholecystectomy due to the nature of the pain as well as a HIDA scan that showed non filling of the gall bladder. Despite the cholecystectomy his symptoms did not improve and he returned to the ER on 07/02/[address] scan of the abdomen/pelvis which revealed a large ill defined low attenuation mass involving the body of the pancreas which encased the celiac axis and the superior mesenteric artery. There were also small liver lesions that may represent metastases. CA 19-9 levels are elevated as well. Assessment 50 y/o male with metastatic pancreatic adenocarcinoma. S/p CT guided biopsy of one of the liver lesions. Plan 1. port placement today. plan to transition to PO pain meds after port placement. 2. stop COOLING PIPE INSPECTOR, continue Oramorph. Use PO Dilaudid for breakthrough pain. will make available IV dilaudid for severe breakthrough pain only. 3. I discussed the pathology results which show stage IV mod. diff. mucinous adenocarcinoma. emotional support provided. feelings normalized. discussed next steps of placing port and initiating chemotherapy in clinic. patient would like me to go over this information again when his mother arrives. UPDATE : patient's mother arrived and I reviewed the pathology, diagnosis and treatment plan with the mother as well. questions answers. emotional support provided. greater than 30minutes face to face time spent with patient and mother combined. Problem Qualifiers (1) Abdominal pain: Qualified Code: R10.13 - Epigastric pain Tita Trimble Jul 15, 2016 07:49 Mark Rodríguez MD Jul 16, 2016 07:39
[2016-07-15] MEDS: NICOTINE 21 MG/24 HR PATCH TD SCH (08:39)
[2016-07-15] MEDS: DIVALPROEX SODIUM E.R. 500 MG TAB PO SCH ×2 (08:40→20:10)
[2016-07-15] MEDS: MORPHINE SULFATE 30 MG CONTROLLED RELEASE TAB PO SCH ×2 (08:40→20:10)
[2016-07-15] MEDS: SERTRALINE HCL 50 MG TAB PO SCH (08:40)
[2016-07-15] MEDS: SIMETHICONE 125 MG CHEWABLE TAB PO PRN ×2 (08:45→20:09)
[2016-07-15] MEDS: SODIUM CHLORIDE 0.9% FLUSH 5 ML FLUSH FLUSH SCH ×2 (08:53→20:15)
[2016-07-15] MEDS: REMOVE OLD PATCH T-DERMAL SCH (08:53)
[2016-07-15] MEDS: REMOVE OLD PATCH TD SCH (08:54)
[2016-07-15] MEDS ORDERED: VANCOMYCIN INJ 1,000 MG in SODIUM CHLOR 0.9% 250 ML INJ 250 ML IV SCH (09:00)
[2016-07-15] MEDS ORDERED: ceFAZolin 2 GM PREMIX 50 ML IV SCH (09:00)
[2016-07-15] MEDS ORDERED: MIDAZOLAM HCL 5 MG/5 ML VIAL ONE (10:40)
[2016-07-15] MEDS ORDERED: fentaNYL CITRATE 250 MCG/5 ML AMP ONE (10:40)
[2016-07-15] MEDS ORDERED: LIDOCAINE 1%/EPINEPHrine 1:100,000 SOLN 20 ML VIAL ONE (11:02)
--- NOTE | 2016-07-15 11:54 | PD.RAD ---
Post Procedure Progress Note Pre Procedure Diagnosis: (1) Carcinoma of pancreas metastatic to liver Post Procedure Diagnosis: (1) Carcinoma of pancreas metastatic to liver Procedure Date: Jul 15, 2016 Supervising Radiologist: Jarvis Frazier Anesthesia: Local, Conscious Sedation Plan of Activity Patient to Unit: [facility] Patient Condition: Fair Additional Comments: Port placed via the right subclavian vein. Catheter in good position OK for use. Port left accessed when finished. Patient arrived with nonfunctioning IV access. Ultrasound guide IV placed via the basilic vein. IV removed at conclusion of the procedure See PACS Report for procedural detail/treatment Jarvis Frazier MD Jul 15, 2016 11:54
[2016-07-15] MEDS ORDERED: SODIUM CHLORIDE 0.9% FLUSH 5 ML FLUSH IVF PRN (12:00)
[2016-07-15] MEDS: HYDROmorphone HCL PF 1 MG/ML VIAL IV PUSH PRN ×3 (12:08→22:34)
--- NOTE | 2016-07-15 13:18 | HHI.FPPN ---
Subjective Remarks No acute events overnight. Afebrile, mildly tachycardic to 106. Patient continues to report stomach and back pain. He states this happened last night and he was given simethicone which relieved his pain. He is status post port placement and doing well. He also complains of edema in the base of his penis overnight which has since resolved. (Angelica Leslie MD R3) Objective Vitals Vital Signs Date Time Temp Pulse Resp B/P Pulse Ox O2 Delivery O2 Flow Rate FiO2 07/15/16 12:40 91 18 100/46 95 07/15/16 12:10 99 16 125/63 95 07/15/16 11:55 98.5 103 20 108/58 97 07/15/16 08:30 97 21 07/15/16 08:00 98.0 106 20 108/64 99 07/15/16 06:00 16 07/15/16 04:45 97.3 84 16 99/58 97 07/15/16 01:25 18 07/15/16 00:00 96.8 80 16 103/61 98 07/14/16 21:44 92 07/14/16 21:36 18 07/14/16 20:15 98.8 104 18 125/70 97 07/14/16 16:00 98.6 110 18 111/71 96 07/14/16 14:50 16 07/14/16 14:00 16 I/O 07/14/16 07/14/16 07/14/16 07/15/16 07/15/16 07/15/16 07:00 15:00 23:00 07:00 15:00 23:00 Intake Total 240 ml 1855 ml 960 ml 415 ml 0 ml Balance 240 ml 1855 ml 960 ml 415 ml 0 ml Intake Oral 240 ml 1380 ml 960 ml 0 ml IV Total 475 ml 415 ml # Voids 2 2 3 3 # Bowel Movements 2 1 2 (Angelica Leslie MD R3) Result Diagram: 07/13/16 0650 07/13/16 0650 Objective Remarks O. CONSTITUTIONAL/GEN: normally nourished, sitting up in chair in no acute distress EYES: conjunctiva normal, PERRLA, EOMI. No scleral icterus. ENT: MM moist. LUNGS: Clear to auscultation bilaterally, respiratory effort is normal. CARDIOVASCULAR: RRR without murmur or gallop. GI/ABD: soft without masses, without organomegaly. BS +. NEURO: No focal deficits. SKIN: color pale, no rashes noted. HEME/LYMPH: no bruising, petechia or significant adenopathy MUSC: back is normal in appearance. 1+ pitting edema in the ankles. PSYCH/MENTAL STATUS: Alert and oriented x 3. (Angelica Leslie MD R3) A/P Assessment and Plan 50-year-old man pancreatic mass, found to be metastatic pancreatic cancer presented with intractable abdominal pain. Admitted for pain control and biopsy to guide palliative chemotherapy. Discharge Planning Pending pain control and oncology workup (Angelica Leslie MD R3) Attending Attestation Patient seen and examined. Case reviewed and discussed with the resident team. Agree with plan of care as discussed with me and documented in the resident note. (Bridgette Workman MD) Problem List: (1) Intractable abdominal pain Status: Acute Plan: Patient is a 50-year-old man with a known pancreatic mass who presents with intractable abdominal pain. Pt is s/p cholecystectomy on 06/06/16, s/p ERCP with stent placement, with imaging concerning for pancreatic mass consistent with pancreatic adenocarcinoma with possible liver metastasis and elevated tumor markers with CA-19-9, who is being admitted for pain management, biopsy, and oncology workup. 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 Medical oncology consult. (3) Bipolar disorder Status: Chronic Plan: Patient with bipolar disorder diagnosed at 16 years of age with comorbid conditions such as anxiety and depression. Continue home medications as below: Depakote ER 500 mg by mouth twice a day Latuda 40 mg by mouth daily at bedtime Mirtazapine/Remeron 15 mg by mouth daily at bedtime Sertraline/Zoloft 100 mg by mouth daily (4) FEN/DVT PPX/GI PPX Status: Acute Plan: Fluids: Hep-Lock IV Electrolytes: Monitor and replete as needed Nutrition: Regular basic diet as tolerated GI prophylaxis: Protonix DVT prophylaxis: Lovenox 40 mg subcutaneous every 24 hours (Angelica Leslie MD R3) Angelica Leslie MD R3 Jul 15, 2016 13:18 Bridgette Workman MD Jul 15, 2016 14:00
[2016-07-15] MEDS: HYDROmorphone HCL 2 MG TAB PO PRN (14:18)
--- NOTE | 2016-07-15 14:35 | RADRPT ---
EXAM DATE/TIME: 07/15/2016 10:52 [facility] COMPARISON: No previous studies available for comparison. INDICATIONS : Patient in need of IV for port placement. MEDICAL HISTORY : Bipolar disorder diagnosed at 16 years old Depression Anxiety SURGICAL HISTORY : s/p cholecystectomy on 06/06/16, s/p ERCP with stent placement last admission Nasal surgery I&D of left hand abscess ENCOUNTER: Initial ACUITY: 1 day PAIN SCORE: 7/10 LOCATION: back and abdomen ACCESS: Right basilic vein DEVICE(S): 1.) 3/4 Hebrew Dilator PROCEDURE : 1. Ultrasound guided venous access. The patient arrived in the department for port placement. The existing IV was no longer functional. [address] an IV with a blind stick. These were not successful. The risks, benefits and alternatives to the procedure were explained and verbal and written consent w as obtained. The site was prepped in sterile fashion. Full sterile technique was used, including ca p, mask, sterile gloves and gown and a large sterile sheet. Hand hygiene and 2% chlorhexidine and/or betadine/alcohol prep was utilized per protocol for cutaneous antisepsis. The skin and subcutaneous tissues were infiltrated with local anesthetic solution. With ultrasound guidance the prescribed vein was punctured for venous access. A 4 Hebrew dilator was placed and was flushed and locked with heparin. The patient tolerated procedure well and there were n o complications. CONCLUSION: Uncomplicated ultrasound guided venous access. Jarvis Frazier MD on July 15, 2016 at 14:34 Board Certified Radiologist. This report was verified electronically.
--- NOTE | 2016-07-15 14:36 | RADRPT ---
EXAM DATE/TIME: 07/15/2016 11:09 [facility] COMPARISON: PERIPHERAL IV ACCESS W/US, RT, July 15, 2016, 10:52. INDICATIONS : Patient with pancreatic cancer in need of port placement for treatment. MEDICAL HISTORY : Bipolar disorder diagnosed at 16 years old Depression Anxiety SURGICAL HISTORY : s/p cholecystectomy on 06/06/16, s/p ERCP with stent placement last admission Nasal surgery I&D of left hand abscess ENCOUNTER: Initial ACUITY: 4-6 days PAIN SCORE: 7/10 LOCATION: back and abdomen FLUORO TIME: 1.2 minutes SEDATION TIME: 30 minutes ACCESS: Right subclavian vein SEDATION: 1.) 1 mg midazolam (Versed) IV 2.) 50 mcg fentanyl (Sublimaze) IV Prophylactic antibiotics were administered with appropriate pre-procedure timing. Vancomycin within 2 hours of procedure, Ancef (or alternative) within 1 hour of procedure. DEVICE: 1. 8 Ukrainian single lumen [id number] PROCEDURE : 1. Continuous pulse oximetry and EKG monitoring. 2. Intravenous conscious sedation. 3. Ultrasound guidance for venous access. 4. Fluoroscopic guided implantable central venous port placement. The patient was placed supine. The neck was prepped in sterile fashion. Full sterile technique was u sed, including cap, mask, sterile gloves and gown, and a large sterile sheet. Hand hygiene and 2% ch lorhexidine Betadine was utilized per protocol for cutaneous antisepsis with appropriate dry time for site. The skin and subcutaneous tissues were infiltrated with local anesthetic solution. Under direct ultrasound guidance, the right subclavian vein was accessed.. The ultrasound images dep icting access guidance were stored and saved to PACS for permanent record. A subcutaneous pocket was created using blunt dissection. The port was introduced to the pocket. The catheter tubing was fed through a subcutaneous tunnel to the venotomy site. The catheter tubing was cut to a suitable lengt h and then was introduced through a valved Peel-Away sheath and positioned with catheter tubing tip a t the cavo-atrial junction level. The pocket incision was closed with subcuticular Vicryl suture. S michelle-Strips were applied. The port was flushed and locked with heparin solution per protocol. Steri le dressing was applied to the site. The patient tolerated the procedure well. Conscious sedation was performed with the prescribed dosages and duration as above. The patient sravanthi ated the procedure well and there were no complications. EKG and oximetry remained stable throughout the procedure. The patient was sent to post anesthesia recovery in stable condition. CONCLUSION: Uncomplicated ultrasound and fluoroscopic guided implanted central venous port catheter placement as described in detail above. An 8 Ukrainian Power port was placed. Jarvis Frazier MD on July 15, 2016 at 14:34 Board Certified Radiologist. This report was verified electronically.
[2016-07-15] MEDS: MIRTAZAPINE 15 MG TAB PO SCH (20:09)
[2016-07-15] MEDS: DOCUSATE SODIUM 50 MG/SENNA 8.6 MG TAB PO SCH (20:10)
[2016-07-15] MEDS: LURASIDONE 40 MG TAB PO SCH (20:10)
[2016-07-16] VITALS: BP 96/56; PULSE 90; RESP 16; TEMP 97.7; O2SAT 98
[2016-07-16 04:00] VITALS: BP 107/60; PULSE 94; RESP 16; TEMP 98.6; O2SAT 97
[2016-07-16] MEDS: HYDROmorphone HCL 2 MG TAB PO PRN ×6 (04:05→22:09)
[2016-07-16] MEDS: SIMETHICONE 125 MG CHEWABLE TAB PO PRN ×3 (05:57→22:09)
[2016-07-16 08:00] VITALS: BP 111/66; PULSE 92; RESP 16; TEMP 98.1; O2SAT 98
[2016-07-16] MEDS: PANTOPRAZOLE SOD 40 MG DELAYED RELEASE TAB PO SCH (08:45)
[2016-07-16] MEDS: DIVALPROEX SODIUM E.R. 500 MG TAB PO SCH ×2 (08:45→20:10)
[2016-07-16] MEDS: SERTRALINE HCL 50 MG TAB PO SCH (08:45)
[2016-07-16] MEDS: NICOTINE 21 MG/24 HR PATCH TD SCH (08:47)
--- NOTE | 2016-07-16 08:52 | HHI.FPPN ---
Subjective Remarks med chages d/w pt chemo w melanie and danilo - can go home without iv pain meds likely d/c in 24 h assuming pain control pain flared up this morning - dilaudid at 4am pt doesn't want to go home with pain flares ankles feel swollen. --> 20 po lasix Objective Vitals Vital Signs Date Time Temp Pulse Resp B/P Pulse Ox O2 Delivery O2 Flow Rate FiO2 07/16/16 04:00 98.6 94 16 107/60 97 07/16/16 00:00 97.7 90 16 96/56 98 07/15/16 20:30 88 16 98 07/15/16 20:00 97.7 93 18 113/69 07/15/16 16:00 98.6 92 18 115/65 98 07/15/16 13:05 98.0 95 20 108/59 95 07/15/16 12:40 91 18 100/46 95 07/15/16 12:10 99 16 125/63 95 07/15/16 11:55 98.5 103 20 108/58 97 I/O 07/15/16 07/15/16 07/15/16 07/16/16 07/16/16 07/16/16 07:00 15:00 23:00 07:00 15:00 23:00 Intake Total 415 ml 480 ml 960 ml Balance 415 ml 480 ml 960 ml Intake Oral 480 ml 960 ml IV Total 415 ml # Voids 5 3 # Bowel Movements 1 Result Diagram: 07/13/16 0650 07/13/16 0650 Objective Remarks O. CONSTITUTIONAL/GEN: normally nourished, sitting up in chair in no acute distress EYES: conjunctiva normal, PERRLA, EOMI. No scleral icterus. ENT: MM moist. LUNGS: Clear to auscultation bilaterally, respiratory effort is normal. CARDIOVASCULAR: RRR without murmur or gallop. GI/ABD: soft without masses, without organomegaly. BS +. NEURO: No focal deficits. SKIN: color pale, no rashes noted. HEME/LYMPH: no bruising, petechia or significant adenopathy MUSC: back is normal in appearance. 1+ pitting edema in the ankles. PSYCH/MENTAL STATUS: Alert and oriented x 3. A/P Assessment and Plan 50-year-old man pancreatic mass, found to be metastatic pancreatic cancer presented with intractable abdominal pain. Admitted for pain control and biopsy to guide palliative chemotherapy. Discharge Planning Pending pain control and oncology workup Problem List: (1) Intractable abdominal pain Status: Acute Plan: Patient is a 50-year-old man with a known pancreatic mass who presents with intractable abdominal pain. Pt is s/p cholecystectomy on 06/06/16, s/p ERCP with stent placement, with imaging concerning for pancreatic mass consistent with pancreatic adenocarcinoma with possible liver metastasis and elevated tumor markers with CA-19-9, who is being admitted for pain management, biopsy, and oncology workup. 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 Medical oncology consult. (3) Bipolar disorder Status: Chronic Plan: Patient with bipolar disorder diagnosed at 16 years of age with comorbid conditions such as anxiety and depression. Continue home medications as below: Depakote ER 500 mg by mouth twice a day Latuda 40 mg by mouth daily at bedtime Mirtazapine/Remeron 15 mg by mouth daily at bedtime Sertraline/Zoloft 100 mg by mouth daily (4) FEN/DVT PPX/GI PPX Status: Acute Plan: Fluids: Hep-Lock IV Electrolytes: Monitor and replete as needed Nutrition: Regular basic diet as tolerated GI prophylaxis: Protonix DVT prophylaxis: Lovenox 40 mg subcutaneous every 24 hours Problem Qualifiers (1) Bipolar disorder: Qualified Code: F31.9 - Bipolar affective disorder, remission status unspecified Demarcus Chan MD R1 Jul 16, 2016 08:52
[2016-07-16] MEDS: MORPHINE SULFATE 30 MG CONTROLLED RELEASE TAB PO SCH ×3 (09:00→22:10)
[2016-07-16] MEDS ORDERED: FUROSEMIDE 20 MG TAB PO ONE (09:00)
[2016-07-16] MEDS: REMOVE OLD PATCH TD SCH (09:00)
[2016-07-16] MEDS ORDERED: MORPHINE SULFATE 30 MG CONTROLLED RELEASE TAB PO SCH (09:00)
[2016-07-16] MEDS: SODIUM CHLORIDE 0.9% FLUSH 5 ML FLUSH FLUSH SCH ×2 (09:00→20:09)
[2016-07-16] MEDS: MORPHINE SULFATE 15 MG CONTROLLED RELEASE TAB PO SCH ×3 (09:00→22:10)
[2016-07-16] MEDS ORDERED: MORPHINE SULFATE 15 MG CONTROLLED RELEASE TAB PO SCH (09:00)
[2016-07-16] MEDS: REMOVE OLD PATCH T-DERMAL SCH (09:00)
[2016-07-16 12:00] VITALS: BP 117/68; PULSE 94; RESP 18; TEMP 98.3; O2SAT 98
--- NOTE | 2016-07-16 14:55 | HHI.FPPN ---
Subjective Remarks Patient was seen, examined and discussed with the medicine team. This is a 50-year-old male accompanied by his mother with pancreatic carcinoma with metastases to the liver, based on liver biopsy. Patient has been seen regularly by hematology/oncology and their recommendation is to discharge home when stable on pain medication by mouth. Patient reports a significant breakthrough in his pain this morning and this occurred around the time he was due for his long-acting morphine. There are times when his pain is fairly well controlled but other times when he has significant breakthrough. He is still having loose but semi-formed stools. Nicotine patch in place. Objective Vitals Vital Signs Date Time Temp Pulse Resp B/P Pulse Ox O2 Delivery O2 Flow Rate FiO2 07/16/16 12:00 98.3 94 18 117/68 98 07/16/16 08:00 98.1 92 16 111/66 98 07/16/16 04:00 98.6 94 16 107/60 97 07/16/16 00:00 97.7 90 16 96/56 98 07/15/16 20:30 88 16 98 07/15/16 20:00 97.7 93 18 113/69 07/15/16 16:00 98.6 92 18 115/65 98 I/O 07/15/16 07/15/16 07/15/16 07/16/16 07/16/16 07/16/16 07:00 15:00 23:00 07:00 15:00 23:00 Intake Total 415 ml 480 ml 960 ml Balance 415 ml 480 ml 960 ml Intake Oral 480 ml 960 ml IV Total 415 ml # Voids 5 3 # Bowel Movements 1 Result Diagram: 07/13/16 0650 07/13/16 0650 Other Results Allergies Coded Allergies No Known Allergies ([id number]/29/16) Imaging Pathology report is for moderately differentiated mucinous adenocarcinoma Objective Remarks O. CONSTITUTIONAL/GEN: normally nourished, sitting up in chair in moderately severe distress with abdominal pain EYES: conjunctiva normal, PERRLA, EOMI. No scleral icterus. ENT: MM moist. LUNGS: Clear to auscultation bilaterally, respiratory effort is normal. CARDIOVASCULAR: RRR without murmur or gallop. GI/ABD: soft without masses, without organomegaly. BS +. Tender in the left upper abdomen this morning. NEURO: No focal deficits. SKIN: color pale, no rashes noted. HEME/LYMPH: no bruising, petechia or significant adenopathy MUSC: back is normal in appearance. 1+ pitting edema in the ankles. PSYCH/MENTAL STATUS: Alert and oriented x 3. A/P Assessment and Plan 50-year-old man pancreatic mass, found to be metastatic pancreatic cancer presented with intractable abdominal pain. Admitted for pain control and biopsy to guide palliative chemotherapy. Discharge Planning Pending adequate pain control with by mouth medications, to follow-up with oncology. Possible discharge July 17. Attending Attestation Patient seen and examined. Case reviewed and discussed with the resident team. Agree with plan of care as discussed with me and documented in my note. Problem List: (1) Intractable abdominal pain Status: Acute Plan: Patient is a 50-year-old man with a known pancreatic mass who presents with intractable abdominal pain. Pt is s/p cholecystectomy on 06/06/16, s/p ERCP with stent placement, with imaging concerning for pancreatic mass consistent with pancreatic adenocarcinoma with possible liver metastasis and elevated tumor markers with CA-19-9, who was being admitted for pain management , biopsy, and oncology workup. 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 Medical oncology consult and assistance appreciated (3) Bipolar disorder Status: Chronic Plan: Patient with bipolar disorder diagnosed at 16 years of age with comorbid conditions such as anxiety and depression. Continue home medications as below: Depakote ER 500 mg by mouth twice a day Latuda 40 mg by mouth daily at bedtime Mirtazapine/Remeron 15 mg by mouth daily at bedtime Sertraline/Zoloft 100 mg by mouth daily (4) FEN/DVT PPX/GI PPX Status: Acute Plan: Fluids: Hep-Lock IV Electrolytes: Monitor and replete as needed Nutrition: Regular basic diet as tolerated GI prophylaxis: Protonix DVT prophylaxis: Lovenox 40 mg subcutaneous every 24 hours Problem Qualifiers (1) Bipolar disorder: Qualified Code: F31.9 - Bipolar affective disorder, remission status unspecified Bridgette Workman MD Jul 16, 2016 14:55
[2016-07-16 16:00] VITALS: BP 97/55; PULSE 82; RESP 16; TEMP 96.9; O2SAT 96
[2016-07-16 20:00] VITALS: BP 107/71; PULSE 106; RESP 16; TEMP 99.1; O2SAT 100
[2016-07-16] MEDS: LURASIDONE 40 MG TAB PO SCH (20:10)
[2016-07-16] MEDS: MIRTAZAPINE 15 MG TAB PO SCH (20:10)
[2016-07-16] MEDS: DOCUSATE SODIUM 50 MG/SENNA 8.6 MG TAB PO SCH (20:10)
[2016-07-17] VITALS: BP 114/64; PULSE 93; RESP 16; TEMP 97.4; O2SAT 98
[2016-07-17] MEDS: HYDROmorphone HCL 2 MG TAB PO PRN ×7 (01:30→22:08)
[2016-07-17 04:00] VITALS: BP 115/60; PULSE 90; RESP 16; TEMP 97.8; O2SAT 98
[2016-07-17] MEDS: MORPHINE SULFATE 15 MG CONTROLLED RELEASE TAB PO SCH (05:52)
[2016-07-17] MEDS: MORPHINE SULFATE 30 MG CONTROLLED RELEASE TAB PO SCH (05:52)
[2016-07-17 07:09] VITALS: BP 115/72; PULSE 95; RESP 20; TEMP 98.4; O2SAT 93
[2016-07-17] MEDS: SIMETHICONE 125 MG CHEWABLE TAB PO PRN (08:02)
[2016-07-17] MEDS: PANTOPRAZOLE SOD 40 MG DELAYED RELEASE TAB PO SCH (08:02)
[2016-07-17] MEDS: DIVALPROEX SODIUM E.R. 500 MG TAB PO SCH ×2 (08:02→22:05)
[2016-07-17] MEDS: SERTRALINE HCL 50 MG TAB PO SCH (08:02)
[2016-07-17] MEDS: ENOXAPARIN SODIUM 40 MG/0.4 ML SYRINGE SQ SCH (08:03)
[2016-07-17] MEDS: NICOTINE 21 MG/24 HR PATCH TD SCH (08:04)
[2016-07-17] MEDS: SODIUM CHLORIDE 0.9% FLUSH 5 ML FLUSH FLUSH SCH ×2 (08:05→22:05)
[2016-07-17] MEDS: REMOVE OLD PATCH T-DERMAL SCH (08:05)
[2016-07-17] MEDS: REMOVE OLD PATCH TD SCH (08:06)
--- NOTE | 2016-07-17 08:51 | PD.ONC.PN ---
Subjective Subjective Remarks Afebrile overnight. Patient reports he is feeling improved today. He feels pain is controlled with current pain regimen. He feels he is ready to go home. Objective Data Date Time Temp Pulse Resp B/P Pulse Ox O2 Delivery O2 Flow Rate FiO2 07/17/16 07:09 98.4 95 20 115/72 93 07/17/16 04:00 97.8 90 16 115/60 98 07/17/16 00:00 97.4 93 16 114/64 98 07/16/16 20:00 99.1 106 16 107/71 100 07/16/16 16:00 96.9 82 16 97/55 96 07/16/16 12:00 98.3 94 18 117/68 98 Result Diagram: 07/13/16 0650 07/13/16 0650 Administered Medications Medications (Trade) Dose Ordered Sig/Cristiane Route PRN Reason Start Time Stop Time Status Last Admin Dose Admin IV Flush (NS Flush) 2 ml BID FLUSH 07/10/16 21:00 07/17/16 08:05 Divalproex Sodium (Depakote Er) 500 mg BID PO 07/10/16 21:00 07/17/16 08:02 Lurasidone HCl (Latuda) 40 mg HS PO 07/10/16 21:00 07/16/16 20:10 Mirtazapine (Remeron) 15 mg HS PO 07/10/16 21:00 07/16/16 20:10 Enoxaparin Sodium (Lovenox Inj) 40 mg Q24H SQ 07/12/16 08:00 07/17/16 08:03 Sertraline HCl (Zoloft) 100 mg DAILY PO 07/13/16 09:00 07/17/16 08:02 Nicotine (Habitrol 21 Mg Patch.24 Hr) 1 patch DAILY TD 07/13/16 10:15 07/17/16 08:04 Miscellaneous Information 1 DAILY T-DERMAL 07/14/16 09:00 07/17/16 08:05 Simethicone (Phazyme Chew) 125 mg Q6HR PRN PO GAS PAINS 07/14/16 21:00 07/17/16 08:02 Heparin Sodium (Porcine) (Heparin Central Flush) 500 units UNSCH IVF 07/15/16 12:00 07/15/16 17:57 IV Flush (NS Flush) 5 ml UNSCH PRN IVF SEE PROTOCOL 07/15/16 12:00 07/15/16 17:57 Pantoprazole Sodium (Protonix) 40 mg DAILY PO 07/16/16 09:00 07/17/16 08:02 Hydromorphone HCl (Dilaudid) 2 mg Q3H PRN PO PAIN SCALE 1 TO 9 07/16/16 09:00 07/17/16 08:03 Morphine Sulfate (Oramorph Sr) 15 mg Q8HR PO 07/16/16 09:00 07/17/16 05:52 Morphine Sulfate (Oramorph Sr) 30 mg Q8HR PO 07/16/16 09:00 07/17/16 05:52 Objective Remarks GENERAL: Middle aged male, sitting up in bed. SKIN: Warm and dry. HEAD: Normocephalic. EYES: No injection or drainage. NECK: Supple, trachea midline. CARDIOVASCULAR: Regular rate and rhythm RESPIRATORY: Breath sounds equal bilaterally. No accessory muscle use. GASTROINTESTINAL: Abdomen soft, mildly tender in epigastric region nondistended. EXTREMITIES: No cyanosis. 1+ LE edema. MUSCULOSKELETAL: Adequate muscle tone. NEUROLOGICAL: AO x3. moving all extremities. Assessment/Plan Problem List: (1) Abdominal pain Status: Acute Plan: 07/17/16: pain controlled on current regimen. clear for d/c 07/15/15: continue Oramorph 45mg PO q 12 hours. plan to stop [employer] after port placement and transition to PO pain meds with IV available for severe breakthrough pain only. 07/14/15: Oramorph increased to 45mg PO q12h. 07/13/16: Continue Oramorph 30mg Q12h. (2) Carcinoma of pancreas metastatic to liver Status: Acute Plan: -- pathology shows moderately differentiated mucinous adenocarcinoma. -- CT scan on 07/02/16 showed 3 liver lesions that may possibly be mets. -- CA 19-9 levels are elevated. Hx:/Hospital Workup: In February 2016 Mr. Alejandro began having some diffuse upper abdominal pain that was associated with anorexia, weight loss, and fatigue. He has lost 70 pounds total since that time. A CT scan of the abdomen pelvis on 02/17 revealed no abnormalities per the report. An MRCP on 05/16/16 revealed a normal pancreas. Eventually the patient was referred to Dr Bennett for a cholecystectomy due to the nature of the pain as well as a HIDA scan that showed non filling of the gall bladder. Despite the cholecystectomy his symptoms did not improve and he returned to the ER on 07/02/[address] scan of the abdomen/pelvis which revealed a large ill defined low attenuation mass involving the body of the pancreas which encased the celiac axis and the superior mesenteric artery. There were also small liver lesions that may represent metastases. CA 19-9 levels are elevated as well. Assessment 50 y/o male with metastatic pancreatic adenocarcinoma. S/p CT guided biopsy of one of the liver lesions. Plan 1. clear for discharge. follow up in clinic [facility] post-discharge. 2. continue current pain regimen. Problem Qualifiers (1) Abdominal pain: Qualified Code: R10.13 - Epigastric pain Tita Trimble Jul 17, 2016 08:51
[2016-07-17 11:30] VITALS: BP 125/83; PULSE 100; RESP 20; TEMP 98; O2SAT 97
[2016-07-17] MEDS: FUROSEMIDE 20 MG TAB PO SCH (13:09)
[2016-07-17] MEDS: MORPHINE SULFATE 60 MG CONTROLLED RELEASE TAB PO SCH ×2 (14:14→22:06)
--- NOTE | 2016-07-17 15:31 | HHI.FPPN ---
Subjective Remarks Patient reports improved pain control but some breakthrough pain overnight. Patient reports that he has not yet had a bowel movement today. Discussed that we would increase his pain medications today. (Demarcus Chan MD R1) Objective Vitals Vital Signs Date Time Temp Pulse Resp B/P Pulse Ox O2 Delivery O2 Flow Rate FiO2 07/17/16 11:30 98.0 100 20 125/83 97 07/17/16 07:09 98.4 95 20 115/72 93 07/17/16 04:00 97.8 90 16 115/60 98 07/17/16 00:00 97.4 93 16 114/64 98 07/16/16 20:00 99.1 106 16 107/71 100 07/16/16 16:00 96.9 82 16 97/55 96 I/O 07/16/16 07/16/16 07/16/16 07/17/16 07/17/16 07/17/16 06:59 14:59 22:59 06:59 14:59 22:59 Intake Total 960 ml 480 ml 1084 ml Balance 960 ml 480 ml 1084 ml Intake Oral 960 ml 480 ml 1084 ml IV Total 0 ml # Voids 4 2 2 # Bowel Movements 4 1 (Demarcus Chan MD R1) Result Diagram: 07/13/16 0650 07/13/16 0650 Imaging Last Impressions Port Line Insertion 07/15/16 0600 Signed Impressions: Service Date/Time: Friday, July 15, 2016 11:09 - CONCLUSION: Uncomplicated ultrasound and fluoroscopic guided implanted central venous port catheter placement as described in detail above. An 8 Bengali Power port was placed. Jarvis Frazier MD [facility] [place] Interventional Procedure 07/15/16 0000 Signed Impressions: Service Date/Time: Friday, July 15, 2016 10:52 - CONCLUSION: Uncomplicated ultrasound guided venous access. Jarvis Frazier MD Liver Biopsy CT 07/11/16 0000 Signed Impressions: Service Date/Time: Monday, July 11, 2016 10:10 - CONCLUSION: Uncomplicated CT guided biopsy. Gene Field MD Abdomen/Pelvis CT 07/10/16 1008 Signed Impressions: Service Date/Time: June 11:49 - CONCLUSION: 1. The findings on the current study a very similar to the prior study from 8 days ago with a abnormal low-density mass involving the body of the pancreas and adjacent retroperitoneal structures measuring approximately 5.2 x 4.4 cm. 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 2. 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 There are also 2 low-density lesions that appear more masslike measuring up to 11 mm and may represent lesions or perfusion related abnormalities. These findings are new since the prior study. 3. Abnormal enhancement of the liver likely related to narrowing/occlusion of the portal vein with 3 low-density lesions identified measuring up to 10 mm. These are incompletely characterized but could represent metastatic lesions. 4. There is a stable small volume of free fluid within the abdomen and pelvis. Savage Sarmiento MD Objective Remarks O. CONSTITUTIONAL/GEN: normally nourished, sitting up in chair uncomfortable with abdominal pain EYES: conjunctiva normal, PERRLA, EOMI. No scleral icterus. ENT: MM moist. LUNGS: Clear to auscultation bilaterally, respiratory effort is normal. CARDIOVASCULAR: RRR without murmur or gallop. GI/ABD: soft without masses, without organomegaly. BS +. NEURO: No focal deficits. SKIN: color pale, no rashes noted. HEME/LYMPH: no bruising, petechia or significant adenopathy MUSC: back is normal in appearance. 1+ pitting edema in the ankles. PSYCH/MENTAL STATUS: Alert and oriented x 3. (Demarcus Chan MD R1) A/P Assessment and Plan 50-year-old man pancreatic mass, found to be metastatic pancreatic cancer presented with intractable abdominal pain. Admitted for pain control and biopsy to guide palliative chemotherapy. Discharge Planning Pending adequate pain control with by mouth medications, to follow-up with oncology as soon as possible. Possible discharge tomorrow, July 18. (Demarcus Chan MD R1) Attending Attestation Patient seen and examined. Case reviewed and discussed with the resident team. Agree with plan of care as discussed with me and documented in the resident note. (Bridgette Workman MD) Problem List: (1) Intractable abdominal pain Status: Acute Plan: Patient is a 50-year-old man with a known pancreatic mass who presents with intractable abdominal pain. Pt is s/p cholecystectomy on 06/06/16, s/p ERCP with stent placement, with imaging concerning for pancreatic mass consistent with pancreatic adenocarcinoma with possible liver metastasis and elevated tumor markers with CA-19-9, who was being admitted for pain management , biopsy, and oncology workup. CT guided liver biopsy on 07/11 showed moderately differentiated mucinous adenocarcinoma Increased Morphine SR 60 mg by mouth every 8 hours Dilaudid 2 mg PO every 3 hours when necessary breakthrough pain --Patient not on any IV pain medications Simethicone 125 mg every 6 hours when necessary for gas pains Protonix MiraLAX when necessary for constipation Carla-Colace 2 tab by mouth daily at bedtime (2) Pancreatic mass Status: Acute Plan: See assessment and plan above. Medical oncology consult and assistance appreciated (3) Bipolar disorder Status: Chronic Plan: Patient with bipolar disorder diagnosed at 16 years of age with comorbid conditions such as anxiety and depression. Continue home medications as below: Depakote ER 500 mg by mouth twice a day Latuda 40 mg by mouth daily at bedtime Mirtazapine/Remeron 15 mg by mouth daily at bedtime Sertraline/Zoloft 100 mg by mouth daily (4) Swollen ankles Status: Acute Plan: Patient with swollen ankles for a few days. Lasix 20 mg by mouth daily (5) FEN/DVT PPX/GI PPX Status: Acute Plan: Fluids: Hep-Lock IV Electrolytes: Monitor and replete as needed Nutrition: Regular basic diet as tolerated GI prophylaxis: Protonix DVT prophylaxis: Lovenox 40 mg subcutaneous every 24 hours (Demarcus Chan MD R1) Problem Qualifiers (1) Bipolar disorder: Qualified Code: F31.9 - Bipolar affective disorder, remission status unspecified Demarcus Chan MD R1 Jul 17, 2016 15:30 Bridgette Workman MD Jul 17, 2016 20:05
[2016-07-17 15:45] VITALS: BP 125/78; PULSE 97; RESP 20; TEMP 97.7; O2SAT 97
[2016-07-17 20:00] VITALS: BP 131/76; PULSE 97; RESP 17; TEMP 97.7; O2SAT 98
[2016-07-17] MEDS: DOCUSATE SODIUM 50 MG/SENNA 8.6 MG TAB PO SCH (22:04)
[2016-07-17] MEDS: MIRTAZAPINE 15 MG TAB PO SCH (22:05)
[2016-07-17] MEDS: LURASIDONE 40 MG TAB PO SCH (22:05)
[2016-07-18] VITALS: BP 109/65; PULSE 92; RESP 18; TEMP 96.8; O2SAT 96
[2016-07-18] MEDS: HYDROmorphone HCL 2 MG TAB PO PRN ×5 (01:20→13:55)
[2016-07-18 04:00] VITALS: BP 128/74; PULSE 96; RESP 18; TEMP 97.4; O2SAT 96
[2016-07-18] MEDS: MORPHINE SULFATE 60 MG CONTROLLED RELEASE TAB PO SCH ×2 (04:42→13:26)
[2016-07-18 08:00] VITALS: BP 101/62; PULSE 96; RESP 17; TEMP 96.8; O2SAT 97
[2016-07-18] MEDS: PANTOPRAZOLE SOD 40 MG DELAYED RELEASE TAB PO SCH (08:05)
[2016-07-18] MEDS: NICOTINE 21 MG/24 HR PATCH TD SCH (08:05)
[2016-07-18] MEDS: FUROSEMIDE 20 MG TAB PO SCH (08:05)
[2016-07-18] MEDS: ENOXAPARIN SODIUM 40 MG/0.4 ML SYRINGE SQ SCH (08:05)
[2016-07-18] MEDS: DIVALPROEX SODIUM E.R. 500 MG TAB PO SCH (08:05)
[2016-07-18] MEDS: SODIUM CHLORIDE 0.9% FLUSH 5 ML FLUSH FLUSH SCH (08:05)
[2016-07-18] MEDS: SERTRALINE HCL 50 MG TAB PO SCH (08:05)
[2016-07-18] MEDS: REMOVE OLD PATCH T-DERMAL SCH (08:07)
[2016-07-18] MEDS: REMOVE OLD PATCH TD SCH (08:08)
[2016-07-18] MEDS ORDERED: POLY17S PO (08:30)
[2016-07-18] MEDS ORDERED: SENN1TAB PO (08:30)
[2016-07-18] MEDS ORDERED: MORP1TAB26 PO (08:30)
[2016-07-18] MEDS ORDERED: DILA2TAB2 PO (08:30)
[2016-07-18] MEDS ORDERED: ZOLO50TA PO ×2 (08:30→08:33)
[2016-07-18] MEDS ORDERED: FURO20TA PO (08:30)
[2016-07-18] MEDS ORDERED: SIME1CHW11 PO (08:30)
--- NOTE | 2016-07-18 08:31 | HHI.DCPOC ---
Discharge Care Plan Diagnosis: (1) Intractable abdominal pain (2) Carcinoma of pancreas metastatic to liver Goals to Promote Your Health * To prevent worsening of your condition and complications, please take your medications as prescribed and follow up with your oncologist. Directions to Meet Your Goals Take your medications as prescribed Follow your dietary instruction Follow activity as directed Keep your appointments as scheduled Take your immunizations and boosters as scheduled If your symptoms worsen call your PCP, if no PCP go to Urgent Care Center or Emergency Room Smoking is Dangerous to Your Health. Avoid second hand smoke Call the 24-hour hour crisis hotline for domestic abuse at Demarcus Chan MD R1 Jul 18, 2016 08:31
[2016-07-18] MEDS ORDERED: PANT40TA3 PO (08:39)
--- NOTE | 2016-07-18 08:41 | HHI.FPPN ---
Subjective Remarks No acute events overnight. Except for pulse in the 90s to 100, afebrile vital signs stable. Patient reports a slip well. Patient reports pain is controlled on his current medication regimen well enough to go home. Discussed discharge planning. Will coordinate with case management. (Demarcus Chan MD R1) Objective Vitals Vital Signs Date Time Temp Pulse Resp B/P Pulse Ox O2 Delivery O2 Flow Rate FiO2 07/18/16 06:09 18 07/18/16 06:09 18 07/18/16 04:00 97.4 96 18 128/74 96 07/18/16 00:00 96.8 92 18 109/65 96 07/17/16 20:00 97.7 97 17 131/76 98 07/17/16 15:45 97.7 97 20 125/78 97 07/17/16 11:30 98.0 100 20 125/83 97 I/O 07/17/16 07/17/16 07/17/16 07/18/16 07/18/16 07/18/16 07:00 15:00 23:00 07:00 15:00 23:00 Intake Total 1084 ml 480 ml Balance 1084 ml 480 ml Intake Oral 1084 ml 480 ml # Voids 2 # Bowel Movements 1 (Demarcus Chan MD R1) Objective Remarks O. CONSTITUTIONAL/GEN: normally nourished, sitting up in chair EYES: conjunctiva normal, PERRLA, EOMI. No scleral icterus. ENT: MM moist. LUNGS: Clear to auscultation bilaterally, respiratory effort is normal. CARDIOVASCULAR: RRR without murmur or gallop. GI/ABD: soft without masses, without organomegaly. BS +. NEURO: No focal deficits. SKIN: color pale, no rashes noted. HEME/LYMPH: no bruising, petechia or significant adenopathy MUSC: back is normal in appearance. Improved edema in the ankles. PSYCH/MENTAL STATUS: Alert and oriented x 3. (Demarcus Chan MD R1) A/P Assessment and Plan 50-year-old man pancreatic mass, found to be metastatic pancreatic cancer presented with intractable abdominal pain. Admitted for pain control and biopsy , which showed moderately differentiated mucinous adenocarcinoma, to guide palliative chemotherapy. Discharge Planning Pending adequate pain control with by mouth medications, to follow-up with oncology in 2-3 days. Likely discharge today, July 18. (Demarcus Chan MD R1 ) Attending Attestation Patient seen and examined. Case reviewed and discussed with the resident team. Agree with plan of care as discussed with me and documented in the resident note. (Bridgette Workman MD) Problem List: (1) Intractable abdominal pain Status: Acute Plan: Patient is a 50-year-old man with a known pancreatic mass who presents with intractable abdominal pain. Pt is s/p cholecystectomy on 06/06/16, s/p ERCP with stent placement, with imaging concerning for pancreatic mass consistent with pancreatic adenocarcinoma with possible liver metastasis and elevated tumor markers with CA-19-9, who was being admitted for pain management , biopsy, and oncology workup. 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 Increased Morphine SR 60 mg by mouth every 8 hours Dilaudid 2 mg PO every 3 hours when necessary breakthrough pain --Patient not on any IV pain medications Simethicone 125 mg every 6 hours when necessary for gas pains Protonix MiraLAX when necessary for constipation Carla-Colace 2 tab by mouth daily at bedtime Follow-up with oncology in 2-3 days (2) Pancreatic mass Status: Acute Plan: See assessment and plan above. Medical oncology consult and assistance appreciated (3) Bipolar disorder Status: Chronic Plan: Patient with bipolar disorder diagnosed at 16 years of age with comorbid conditions such as anxiety and depression. Continue home medications as below: Depakote ER 500 mg by mouth twice a day Latuda 40 mg by mouth daily at bedtime Mirtazapine/Remeron 15 mg by mouth daily at bedtime Sertraline/Zoloft 100 mg by mouth daily (4) Swollen ankles Status: Acute Plan: Patient with swollen ankles for a few days, improved after Lasix. Lasix 20 mg by mouth daily (5) FEN/DVT PPX/GI PPX Status: Acute Plan: Fluids: Hep-Lock IV Electrolytes: Monitor and replete as needed Nutrition: Regular basic diet as tolerated GI prophylaxis: Protonix DVT prophylaxis: Lovenox 40 mg subcutaneous every 24 hours; will not discharge on this medication (Demarcus Chan MD R1) Problem Qualifiers (1) Bipolar disorder: Qualified Code: F31.9 - Bipolar affective disorder, remission status unspecified Demarcus Chan MD R1 Jul 18, 2016 08:41 Bridgette Workman MD Jul 18, 2016 09:07
[2016-07-18] MEDS: SIMETHICONE 125 MG CHEWABLE TAB PO PRN (10:17)
--- NOTE | 2016-07-29 19:43 | HHI.DS ---
Discharge Summary Admission Date Jul 10, 2016 at 13:15 Admitting Diagnosis Intractible Abdominal Pain (1) Intractable abdominal pain Diagnosis: Principal Plan: Patient is a 50-year-old man with a known pancreatic mass who presents with intractable abdominal pain. Pt is s/p cholecystectomy on 06/06/16, s/p ERCP with stent placement, with imaging concerning for pancreatic mass consistent with pancreatic adenocarcinoma with possible liver metastasis and elevated tumor markers with CA-19-9, who was being admitted for pain management , biopsy, and oncology workup. 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 Increased Morphine SR 60 mg by mouth every 8 hours Dilaudid 2 mg PO every 3 hours when necessary breakthrough pain --Patient not on any IV pain medications Simethicone 125 mg every 6 hours when necessary for gas pains Protonix MiraLAX when necessary for constipation Carla-Colace 2 tab by mouth daily at bedtime Follow-up with oncology in 2-3 days (2) Pancreatic mass Diagnosis: Principal Plan: See assessment and plan above. Medical oncology consult and assistance appreciated (3) Bipolar disorder Diagnosis: Secondary Plan: Patient with bipolar disorder diagnosed at 16 years of age with comorbid conditions such as anxiety and depression. Continue home medications as below: Depakote ER 500 mg by mouth twice a day Latuda 40 mg by mouth daily at bedtime Mirtazapine/Remeron 15 mg by mouth daily at bedtime Sertraline/Zoloft 100 mg by mouth daily (4) Swollen ankles Diagnosis: Secondary Plan: Patient with swollen ankles for a few days, improved after Lasix. Lasix 20 mg by mouth daily (5) FEN/DVT PPX/GI PPX Diagnosis: Secondary Plan: Fluids: Hep-Lock IV Electrolytes: Monitor and replete as needed Nutrition: Regular basic diet as tolerated GI prophylaxis: Protonix DVT prophylaxis: Lovenox 40 mg subcutaneous every 24 hours; will not discharge on this medication [facility] Brief History Patient is a 50-year-old man with a known pancreatic mass who presents with intractable abdominal pain. Pt is s/p cholecystectomy on 06/06/16, s/p ERCP with stent placement, with imaging concerning for pancreatic mass consistent with pancreatic adenocarcinoma with possible liver metastasis and elevated tumor markers with CA-19-9. Last admission, pt was unable to undergo percutaneous biopsy because it could not be safely done at this time secondary to inflammation. Last discharge, he was told to follow-up with oncology and get a biopsy as an outpatient, but was unable to. He was discharged on July 04 with 28 pills of Dilaudid 2 mg PO. Patient reports that he has had this abdominal pain since March. He reports that he ran out of Dilaudid pills 2 days ago, dealt with it for one day, and then presented today due to the ED for his intractable abdominal pain. His abdominal pain radiates to the middle of his back and goes all the way up his spine and he also experiences bilateral flank pain. His abdominal pain is associated with weakness, decreased appetite, diarrhea, which involving present since March. He reports that the Dilaudid does give him some relief. He reported that he presented with a pain of 10 out of 10, and after 3 shots of pain medication in the ED, his pain was still 5 out of 10. He reports losing 70 pounds since March. He endorses nausea, but denies any vomiting. He describes his diarrhea as runny, sometimes with solid pieces. He reports that he can drink liquids. Akin is PCP. He has an appointment on the . admitted for possible bx and pain management. Imaging Last Impressions Port Line Insertion 07/15/16 0600 Signed Impressions: Service Date/Time: Friday, July 15, 2016 11:09 - CONCLUSION: Uncomplicated ultrasound and fluoroscopic guided implanted central venous port catheter placement as described in detail above. An 8 [place] port was placed. Jarvis Frazier MD [facility] [place] Interventional Procedure 07/15/16 0000 Signed Impressions: Service Date/Time: Friday, July 15, 2016 10:52 - CONCLUSION: Uncomplicated ultrasound guided venous access. Jarvis Frazier MD Liver Biopsy CT 07/11/16 0000 Signed Impressions: Service Date/Time: Monday, July 11, 2016 10:10 - CONCLUSION: Uncomplicated CT guided biopsy. Gene Field MD Abdomen/Pelvis CT 07/10/16 1008 Signed Impressions: Service Date/Time: June 11:49 - CONCLUSION: 1. The findings on the current study a very similar to the prior study from 8 days ago with a abnormal low-density mass involving the body of the pancreas and adjacent retroperitoneal structures measuring approximately 5.2 x 4.4 cm. 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 2. 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 There are also 2 low-density lesions that appear more masslike measuring up to 11 mm and may represent lesions or perfusion related abnormalities. These findings are new since the prior study. 3. Abnormal enhancement of the liver likely related to narrowing/occlusion of the portal vein with 3 low-density lesions identified measuring up to 10 mm. These are incompletely characterized but could represent metastatic lesions. 4. There is a stable small volume of free fluid within the abdomen and pelvis. Savage Sarmiento MD PE at Discharge O. CONSTITUTIONAL/GEN: normally nourished, sitting up in chair EYES: conjunctiva normal, PERRLA, EOMI. No scleral icterus. ENT: MM moist. LUNGS: Clear to auscultation bilaterally, respiratory effort is normal. CARDIOVASCULAR: RRR without murmur or gallop. GI/ABD: soft without masses, without organomegaly. BS +. NEURO: No focal deficits. SKIN: color pale, no rashes noted. HEME/LYMPH: no bruising, petechia or significant adenopathy MUSC: back is normal in appearance. Improved edema in the ankles. PSYCH/MENTAL STATUS: Alert and oriented x 3. Hospital Course Pt was admitted for pain control and oncology work up. Pt's pain was initially controlled with Dilaudid PENSION ADMINISTRATOR. Pt was then weaned off of PENSION ADMINISTRATOR and onto oral pain medications. Pt had biopsy of likely liver metastasis, which showed moderately differentiated mucinous adenocarcinoma. Pt was discharged on a combination of long-acting and short-acting opioid medications and was instructed to follow up with oncology. Pt Condition on Discharge: Stable Discharge Disposition: Discharge Home Discharge Instructions DIET: Follow Instructions for: As Tolerated, No Restrictions Activities you can perform: Regular-No Restrictions Follow up Referrals: Oncology - 2-3 Days with Mark Rodríguez MD New Medications: Furosemide (Furosemide) 20 Mg Tab 20 MG PO DAILY #30 TAB Hydromorphone (Dilaudid) 2 Mg Tab 2 MG PO Q3H PRN PAIN SCALE 1 TO 9 #240 TAB Morphine ER (Morphine ER) 60 Mg Tab 60 MG PO Q8H #90 TAB Pantoprazole (Pantoprazole) 40 Mg Tab 40 MG PO DAILY #30 TAB Polyethylene Glycol 3350 Powder (Polyethylene Glycol 3350 Powder) 17 Gm Pow 17 GM PO DAILY PRN no stool for 2 days #30 Sennosides-Docusate Sodium (Senna Plus 8.6-50 mg) 1 Tab Tab 2 TAB PO HS #60 TAB Sertraline (Zoloft) 50 Mg Tab 100 MG PO DAILY #60 TAB Simethicone (Gas Relief Maximum Streng) 125 Mg Chw 125 MG PO Q6HR PRN GAS PAINS #30 EA Continued Medications: Divalproex ER (Depakote ER) 500 Mg Cally 500 MG PO BID Control Seizures #30 Ref 0 TAB Hydromorphone (Dilaudid) 2 Mg Tab 2 MG PO Q6HR PRN pain #28 TAB Lurasidone (Latuda) 40 Mg Tab 40 MG PO HS #30 Ref 0 TAB Mirtazapine (Remeron) 15 Mg Tab 15 MG PO HS Depression Control #30 Ref 0 TAB Discontinued Medications: Sertraline (Sertraline) 50 Mg Tab 50 MG PO DAILY #30 Ref 0 TAB Demarcus Chan MD R1 Jul 29, 2016 19:43
== END 2016-07-18 14:09 | disposition home or self-care (01) | DRG 436 ==
LOC: NEPA 09:55 → OBSVTOIN 13:15 → NEDA 13:15 → HOCA 16:14
PROVIDERS: ADMIT Family Medicine; ATTEND Family Medicine
PROC: 0FB03ZX Excision of Liver, Percutaneous Approach, Diagnostic (ICD-10-PCS; principal; 2016-07-11)
PROC: 05HB33Z Insertion of Infusion Device into Right Basilic Vein, Percutaneous Approach (ICD-10-PCS; 2016-07-15)
PROC: B54MZZA Ultrasonography of Right Upper Extremity Veins, Guidance (ICD-10-PCS; 2016-07-15)
PROC: 0JH60XZ Insertion of Tunneled Vascular Access Device into Chest Subcutaneous Tissue and Fascia, Open Approach (ICD-10-PCS; 2016-07-15)
PROC: 02HV33Z Insertion of Infusion Device into Superior Vena Cava, Percutaneous Approach (ICD-10-PCS; 2016-07-15)
PROC: B548ZZA Ultrasonography of Superior Vena Cava, Guidance (ICD-10-PCS; 2016-07-15)
DX: C25.9 Malignant neoplasm of pancreas, unspecified (principal); C78.7 Secondary malignant neoplasm of liver and intrahepatic bile duct; I95.9 Hypotension, unspecified; F31.9 Bipolar disorder, unspecified; F17.210 Nicotine dependence, cigarettes, uncomplicated; Z80.0 Family history of malignant neoplasm of digestive organs; R19.7 Diarrhea, unspecified; R00.0 Tachycardia, unspecified
CPT/HCPCS: 36410; 36561; 47000; 74177; 76937; 77001; 77012; 80048; 80053; 83605; 83690; 85025; 85027; 85610; 85730; 88307; 88341; 88342; 93005; 96361; 96374; 96375; 96376; 99152; 99153; C1788; J1170; J1642; J1650; J2250; J2405; J3010; J3370; J7030; J7050; Q9967